=== PATIENT | male | born 1985 | race Caucasian/White ===

== ENCOUNTER 2017-06-27 05:30 | Emergency (ER) | payer BC ==
[2017-06-27 05:36] VITALS: BP 131/77; PULSE 85; RESP 18; TEMP 97.2
--- NOTE | 2017-06-27 06:50 | ED ---
Wound/Laceration HPI - General Chief Complaint: Wound/Laceration Stated Complaint: left hand lac Time Seen by Provider: 06/27/17 06:34 Source: patient Mode of arrival: ambulatory Limitations: no limitations - History of Present Illness Initial Comments: This patient is a 32-year-old man who presents to be evaluated for laceration to the left hand. Patient states that he was working with a knife and had an injury to his hand. He denies any weakness or numbness to the digits area -: hour(s) Extremity Location: Left: Hand Place: work Patient Tetanus UTD: Yes Context: accidental Associated Symptoms: none - Related Data Home Medications Medication Instructions Recorded Confirmed Dextroamphetamine/Amphetamine 1 tab PO DAILY 06/27/17 06/27/17 [Adderall Xr] Allergies Allergy/AdvReac Type Severity Reaction Status Date / Time No Known Allergies Allergy Verified 06/27/17 05:36 Review of Systems ROS Statement: Those systems with pertinent positive or pertinent negative responses have been documented in the HPI. ROS Other: All systems not noted in ROS Statement are negative. Constitutional: Denies: fever, chills, weakness Neurological: Denies: weakness, numbness, paresthesias Hematological/Lymphatic: Denies: easy bleeding Past Medical History Past Medical History: No Reported History History of Any Multi-Drug Resistant Organisms: None Reported Past Surgical History: Orthopedic Surgery Past Psychological History: No Psychological Hx Reported Smoking Status: Never smoker Past Alcohol Use History: Occasional Past Drug Use History: None Reported General Exam Limitations: no limitations General appearance: alert, in no apparent distress Cardiovascular Exam: Present: other (Normal radial pulse and normal capillary refills a left and) Skin exam: Present: warm, dry, normal color, other (There is a approximately 1.5 cm laceration to left palm.) Course Vital Signs 06/27/17 05:34 Temperature 97.2 F L Pulse Rate 85 Respiratory 18 Rate Blood Pressure 131/77 O2 Sat by Pulse 96 Oximetry Procedures - Laceration Laceration #1 Consent Obtained: verbal consent Indication: laceration Site: hand Description: linear Depth: simple, single layer Anesthetic Used: lidocaine 1% Anesthesia Technique: local infiltration Type of Sutures: nylon Size of Sutures: 5-0 Number of Sutures: 2 Technique: simple, interrupted Patient Tolerated Procedure: well, no complications Disposition Clinical Impression: Laceration Disposition: HOME SELF-CARE Condition: Good Instructions: Care For Your Stitches (ED), Laceration (ED) Referrals: Sadia Hodges MD [Primary Care Provider] - 1-2 days
== END 2017-06-27 06:59 | disposition home or self-care (01) ==
LOC: EC 05:30
DX: S61.412A Laceration without foreign body of left hand, initial encounter (principal); W26.0XXA Contact with knife, initial encounter; Y92.008 Other place in unspecified non-institutional (private) residence as the place of occurrence of the external cause; Z79.899 Other long term (current) drug therapy
CPT/HCPCS: 12001; 99282

== ENCOUNTER 2019-03-16 02:43 | Inpatient (IN) | payer BC ==
[2019-03-16] MEDS ORDERED: SODIUM CHLORIDE 0.9% 1,000 ML IV ONE (03:04)
[2019-03-16] MEDS ORDERED: ONDANSETRON 4 MG/2 ML VIAL IVP STA (03:04)
[2019-03-16] MEDS ORDERED: KETOROLAC 30 MG/ML 1 ML VIAL IVP STA (03:04)
--- NOTE | 2019-03-16 03:07 | ED ---
Abdominal Pain HPI - General Source: patient Mode of arrival: ambulatory Limitations: no limitations <Grace Guerrero - Last Filed: 03/16/19 04:10> <Mandy Cooper - Last Filed: 03/18/19 03:26> - General Chief Complaint: Abdominal Pain Stated Complaint: Flank Pain Time Seen by Provider: 03/16/19 02:59 - History of Present Illness Initial Comments: 33-year-old male patient presents to the emergency department today for evaluation of right flank pain. Patient describes the pain as a intense cramping and pain to the right back that radiates around to the abdomen. Patient states started around 11 PM that woke him from sleep. Patient states he has been nauseated and did have one episode of vomiting. States he has not urinated since pain onset. Denies any diarrhea throughout the day. Denies any fever or chills with this. He denies any similar pain in the past. Denies any previous abdominal surgeries. Patient denies any recent rash, shortness breath, chest pain, constipation, back pain, numbness, tingling, dizziness, weakness, hematuria, dysuria, urinary urgency, urinary frequency, headache, visual changes, or any other complaints. (Grace Guerrero) - Related Data Home Medications Medication Instructions Recorded Confirmed Dextroamphetamine/Amphetamine 40 mg PO DAILY 03/16/19 03/16/19 [Adderall Xr] Multivitamins, Thera [Multivitamin 1 tab PO DAILY 03/16/19 03/16/19 (formulary)] Allergies Allergy/AdvReac Type Severity Reaction Status Date / Time No Known Allergies Allergy Verified 03/16/19 08:02 Review of Systems ROS Other: All systems not noted in ROS Statement are negative. <Grace Guerrero - Last Filed: 03/16/19 04:10> ROS Other: All systems not noted in ROS Statement are negative. <Mandy Cooper - Last Filed: 03/18/19 03:26> ROS Statement: Those systems with pertinent positive or pertinent negative responses have been documented in the HPI. Past Medical History Past Medical History: No Reported History History of Any Multi-Drug Resistant Organisms: None Reported Past Surgical History: Orthopedic Surgery Additional Past Surgical History / Comment(s): vastectomy Past Psychological History: No Psychological Hx Reported Smoking Status: Never smoker Past Alcohol Use History: Occasional Past Drug Use History: None Reported <Grace Guerrero M - Last Filed: 03/16/19 04:10> General Exam Limitations: no limitations General appearance: alert, in no apparent distress, other (Physical well- developed, well-nourished adult male patient in no acute distress. Vital signs upon presentation are temperature 97.6F, pulse 100, respirations 18, blood pressure 131/83, pulse ox 98% on room air.) Eye exam: Present: normal appearance, PERRL, EOMI. Absent: scleral icterus, conjunctival injection, periorbital swelling ENT exam: Present: normal exam, normal oropharynx, mucous membranes moist Respiratory exam: Present: normal lung sounds bilaterally. Absent: respiratory distress, wheezes, rales, rhonchi, stridor Cardiovascular Exam: Present: regular rate, normal rhythm, normal heart sounds. Absent: systolic murmur, diastolic murmur, rubs, gallop, clicks GI/Abdominal exam: Present: soft, tenderness (Right lower quadrant tenderness, right flank tenderness), normal bowel sounds. Absent: distended, guarding, rebound, rigid Neurological exam: Present: alert, oriented X3, CN II-XII intact Psychiatric exam: Present: normal affect, normal mood Skin exam: Present: warm, dry, intact, normal color. Absent: rash <Grace Guerrero M - Last Filed: 03/16/19 04:10> Course Vital Signs 03/16/19 03/16/19 02:51 04:24 Temperature 97.6 F Pulse Rate 100 82 Respiratory 18 18 Rate Blood Pressure 131/83 145/78 O2 Sat by Pulse 98 98 Oximetry Medical Decision Making - Lab Data Result diagrams: 03/16/19 03:05 03/16/19 03:05 - Radiology Data Radiology results: report reviewed, image reviewed <Grace Guerrero M - Last Filed: 03/16/19 04:10> - Lab Data Result diagrams: 03/16/19 03:05 03/16/19 03:05 <Mandy Cooper - Last Filed: 03/18/19 03:26> - Medical Decision Making 33-year-old male patient presented to the emergency department today for evaluation of right sided flank and abdominal pain. Physical examination did reveal right lower quadrant tenderness, right upper quadrant tenderness, and r ight flank tenderness. Labs reviewed and revealed normal white blood cell count. Patient's creatinine elevated to 1.3. IV fluids and Toradol are given in the emergency department, patient does report mild improvement of symptoms but states he is still having pain. Patient is afebrile. Did discuss findings and results with the patient, he has agreed to be admitted for observation for serial abdominal exams and repeat labs. We'll start Flomax. Urine is pending. Patient will be admitted to Dr. Rome. (Grace Guerrero) I was available for consultation in the emergency department. The history and physical exam were done by the midlevel provider. I was consulted for this patient's care. I reviewed the case with the midlevel provider and based on their presentation of the patient, I agree with the assessment, discussed patient care with surgeon director of convention services Dr. Rome who agrees with plan for observation with a consult to urology. Chart was dictated using [employer] dictation software. Attempts were made to correct any dictation errors however some typographical errors may persist. (Mandy Cooper) - Lab Data Lab Results 03/16/19 03/16/19 Range/Units 03:05 03:05 WBC 8.0 (3.8-10.6) k/uL RBC 6.05 H (4.30-5.90) m/uL Hgb 17.9 H (13.0-17.5) gm/dL Hct 54.8 H (39.0-53.0) % MCV 90.5 (80.0-100.0) fL MCH 29.6 (25.0-35.0) pg MCHC 32.7 (31.0-37.0) g/dL RDW 15.6 H (11.5-15.5) % Plt Count 220 (150-450) k/uL Neutrophils % 63 % Lymphocytes % 28 % Monocytes % 5 % Eosinophils % 2 % Basophils % 0 % Neutrophils # 5.1 (1.3-7.7) k/uL Lymphocytes # 2.2 (1.0-4.8) k/uL Monocytes # 0.4 (0-1.0) k/uL Eosinophils # 0.2 (0-0.7) k/uL Basophils # 0.0 (0-0.2) k/uL Sodium 139 (137-145) mmol/L Potassium 4.6 (3.5-5.1) mmol/L Chloride 104 (98-107) mmol/L Carbon Dioxide 25 (22-30) mmol/L Anion Gap 10 mmol/L BUN 9 (9-20) mg/dL Creatinine 1.43 H (0.66-1.25) mg/dL Est GFR (CKD-EPI)AfAm 75 (>60 ml/min/1.73 sqM) Est GFR (CKD-EPI)NonAf 65 (>60 ml/min/1.73 sqM) Glucose 120 H (74-99) mg/dL Calcium 9.2 (8.4-10.2) mg/dL Total Bilirubin 1.1 (0.2-1.3) mg/dL AST 28 (17-59) U/L ALT 66 (21-72) U/L Alkaline Phosphatase 58 (38-126) U/L Total Protein 6.8 (6.3-8.2) g/dL Albumin 4.0 (3.5-5.0) g/dL Amylase 74 (30-110) U/L Lipase 140 (23-300) U/L - Radiology Data CT abdomen and pelvis without contrast was obtained. Report was reviewed in its entirety. Impression by Dr. Rodgers shows 5 mm obstructing right vesicoureteral junction stone causing mild hydroureter and hydronephrosis. Each kidney has several nonobstructing renal stones. Appendix is dilated to 8 mm, contains inspissated stool, without surrounding mesenteric inflammatory change, likely pa kristin's patient in early appendicitis cannot excluded. (Grace Guerrero) Disposition Decision to Admit Reason: Admit from EC Decision Date: 03/16/19 Decision Time: 04:10 <Grace Guerrero - Last Filed: 03/16/19 04:10> <Mandy Cooper - Last Filed: 03/18/19 03:26> Clinical Impression: RLQ abdominal pain, Right ureteral stone Disposition: ADMITTED IP TO THIS [facility] Condition: Good
[2019-03-16 03:23] LABS: Basophils % (A) 0 %; Eosinophils # (A) 0.2 k/uL (0-0.7); Eosinophils % (A) 2 %; HCT 54.8 % (39.0-53.0); HGB 17.9 gm/dL (13.0-17.5); Lymphocytes # (A) 2.2 k/uL (1.0-4.8); Lymphocytes % (A) 28 %; MCH 29.6 pg (25.0-35.0); MCHC 32.7 g/dL (31.0-37.0); MCV 90.5 fL (80.0-100.0); Mean Platelet Volume 7.9; Monocytes # (A) 0.4 k/uL (0-1.0); Monocytes % (A) 5 %; Neutrophils # (A) 5.1 k/uL (1.3-7.7); Neutrophils % (A) 63 %; Platelet Count 220 k/uL (150-450); RBC 6.05 m/uL (4.30-5.90); RDW 15.6 % (11.5-15.5)
[2019-03-16 03:29] LABS: Calcium 9.2 mg/dL (8.4-10.2); Potassium 4.6 mmol/L (3.5-5.1); Total Bilirubin 1.1 mg/dL (0.2-1.3); Total Protein 6.8 g/dL (6.3-8.2)
--- NOTE | 2019-03-16 03:53 | CT ---
EXAM: CT Abdomen and Pelvis Without Intravenous Contrast CLINICAL HISTORY: right upper quadrant pain TECHNIQUE: Axial computed tomography images of the abdomen and pelvis without intravenous contrast. DLP is 565.9 mGy-cm. This CT exam was performed using one or more of the following dose reduction techniques: automated exposure control, adjustment of the mA and/or kV according to patient size, and/or use of iterative reconstruction technique. Coronal and sagittal reconstructions are performed COMPARISON: No relevant prior studies available. FINDINGS: Lung bases: Unremarkable. No mass. No consolidation. ABDOMEN: Liver: Unremarkable. Gallbladder and bile ducts: Unremarkable. No calcified stones. No ductal dilation. Pancreas: Unremarkable. No ductal dilation. Spleen: Unremarkable. No splenomegaly. Adrenals: Unremarkable. No mass. Kidneys and ureters: Each kidney has several nonobstructing renal stones measuring up to 4 mm. 5 mm obstructing right vesicoureteral junction stone on series 201 image 145, causes mild hydroureter and hydronephrosis. Stomach and bowel: Unremarkable. No obstruction. No mucosal thickening. PELVIS: Appendix: Appendix is dilated to 8 mm, contains inspissated stool, without surrounding mesenteric inflammatory change, likely patient's baseline.. Bladder: Unremarkable. No stones. Reproductive: Unremarkable as visualized. ABDOMEN and PELVIS: Intraperitoneal space: Unremarkable. No free air. No significant fluid collection. Bones/joints: 5 mm anterolisthesis of L5 on S1 with associated bilateral old pars defect of L5. No acute fracture. No dislocation. Soft tissues: Unremarkable. Vasculature: Unremarkable. No abdominal aortic aneurysm. Lymph nodes: Unremarkable. No enlarged lymph nodes. IMPRESSION: 5 mm obstructing right vesicoureteral junction stone causes mild hydroureter and hydronephrosis. Each kidney has several nonobstructing renal stones Appendix is dilated to 8 mm, contains inspissated stool, without surrounding mesenteric inflammatory change, likely patient's baseline. Early appendicitis cannot be excluded. Please correlate with clinical and laboratory findings.
[2019-03-16] MEDS ORDERED: ONDANSETRON 4 MG/2 ML VIAL IVP PRN (04:08)
[2019-03-16] MEDS ORDERED: NALOXONE 0.4 MG/ML 1 ML VIAL IV PRN (04:08)
[2019-03-16] MEDS ORDERED: TAMSULOSIN 0.4 MG CAP.ER.24H PO STA (04:10)
[2019-03-16] MEDS: MORPHINE SULFATE 4 MG/ML SYRINGE IV PRN ×2 (04:20→08:03)
[2019-03-16] MEDS: SODIUM CHLORIDE 0.9% 1,000 ML IV SCH ×3 (04:23→22:13)
[2019-03-16 05:34] VITALS: BMI 33.5
[2019-03-16] MEDS: TAMSULOSIN 0.4 MG CAP.ER.24H PO SCH (08:03)
--- NOTE | 2019-03-16 10:30 | P.GSCN ---
History of Present Illness Consult date: 03/16/19 Reason for Consult: Right renal colic Requesting physician: Martha Rome History of present illness: The patient is a 33-year-old white male who had one prior episode of urolithiasis approximately 6 years ago. At that time, he passed a 3 mm ureteral calculus. He now presents with acute onset of right flank pain radiating to the right lower quadrant. A computed tomography scan has shown evidence of mild right hydronephrosis due to a 5 mm right distal ureteral calculus, just cephalad to the ureterovesical junction. Review of Systems - Constitutional Denies chills, Denies fever - Gastrointestinal Reports nausea, Reports vomiting - Genitourinary Reports flank pain, Reports kidney stones, Denies dysuria, Denies hematuria Past Medical History Past Medical History: No Reported History History of Any Multi-Drug Resistant Organisms: None Reported Past Surgical History: Orthopedic Surgery Additional Past Surgical History / Comment(s): Vasectomy Past Psychological History: No Psychological Hx Reported Smoking Status: Never smoker Past Alcohol Use History: Occasional Past Drug Use History: None Reported Medications and Allergies Home Medications Medication Instructions Recorded Confirmed Type Dextroamphetamine/Amphetamine 40 mg PO DAILY 03/16/19 03/16/19 History [Adderall Xr] Multivitamins, Thera [Multivitamin 1 tab PO DAILY 03/16/19 03/16/19 History (formulary)] Allergies Allergy/AdvReac Type Severity Reaction Status Date / Time No Known Allergies Allergy Verified 03/16/19 08:02 Surgical - Exam Vital Signs Temp Pulse Resp BP Pulse Ox 97.6 F 100 18 131/83 98 03/16/19 02:51 03/16/19 02:51 03/16/19 02:51 03/16/19 02:51 03/16/19 02:51 - General well developed, well nourished, moderate distress - Neck no masses, trachea midline - Respiratory normal respiratory effort - Abdomen Abdomen: soft, non tender, no guarding, no rigid, no rebound Hernia: none - Genitourinary normal penis with no external lesions, testicles non-tender - Psychiatric oriented to time, oriented to person, oriented to place, speech is normal, memor y intact Results - Labs 03/16/19 03:05 03/16/19 03:05 Abnormal Lab Results - Last 24 Hours (Table) 03/16/19 03/16/19 Range/Units 03:05 03:05 RBC 6.05 H (4.30-5.90) m/uL Hgb 17.9 H (13.0-17.5) gm/dL Hct 54.8 H (39.0-53.0) % RDW 15.6 H (11.5-15.5) % Creatinine 1.43 H (0.66-1.25) mg/dL Glucose 120 H (74-99) mg/dL Diabetes panel 03/16/19 Range/Units 03:05 Sodium 139 (137-145) mmol/L Potassium 4.6 (3.5-5.1) mmol/L Chloride 104 (98-107) mmol/L Carbon Dioxide 25 (22-30) mmol/L BUN 9 (9-20) mg/dL Creatinine 1.43 H (0.66-1.25) mg/dL Glucose 120 H (74-99) mg/dL Calcium 9.2 (8.4-10.2) mg/dL AST 28 (17-59) U/L ALT 66 (21-72) U/L Alkaline Phosphatase 58 (38-126) U/L Total Protein 6.8 (6.3-8.2) g/dL Albumin 4.0 (3.5-5.0) g/dL Calcium panel 03/16/19 Range/Units 03:05 Calcium 9.2 (8.4-10.2) mg/dL Albumin 4.0 (3.5-5.0) g/dL Pituitary panel 03/16/19 Range/Units 03:05 Sodium 139 (137-145) mmol/L Potassium 4.6 (3.5-5.1) mmol/L Chloride 104 (98-107) mmol/L Carbon Dioxide 25 (22-30) mmol/L BUN 9 (9-20) mg/dL Creatinine 1.43 H (0.66-1.25) mg/dL Glucose 120 H (74-99) mg/dL Calcium 9.2 (8.4-10.2) mg/dL Adrenal panel 03/16/19 Range/Units 03:05 Sodium 139 (137-145) mmol/L Potassium 4.6 (3.5-5.1) mmol/L Chloride 104 (98-107) mmol/L Carbon Dioxide 25 (22-30) mmol/L BUN 9 (9-20) mg/dL Creatinine 1.43 H (0.66-1.25) mg/dL Glucose 120 H (74-99) mg/dL Calcium 9.2 (8.4-10.2) mg/dL Total Bilirubin 1.1 (0.2-1.3) mg/dL AST 28 (17-59) U/L ALT 66 (21-72) U/L Alkaline Phosphatase 58 (38-126) U/L Total Protein 6.8 (6.3-8.2) g/dL Albumin 4.0 (3.5-5.0) g/dL - Imaging CT scan - abdomen: report reviewed, image reviewed Assessment and Plan (1) Right ureteral stone Current Visit: Yes Status: Acute Code(s): N20.1 - CALCULUS OF URETER SNOMED Code(s): 36115019 (2) Hydronephrosis with urinary obstruction due to ureteral calculus Current Visit: Yes Status: Acute Code(s): N13.2 - HYDRONEPHROSIS WITH RENAL AND URETERAL CALCULOUS OBSTRUCTION SNOMED Code(s): 759160426 Plan: I had a lengthy discussion with Mr. Sanchez regarding his ureteral calculus. He is currently experiencing significant pain. I explained that the calculus has a high likelihood of spontaneous passage. If he opts for conservative management, he would be discharged home once comfortable with a prescription for oral analgesics. If he develops intractable pain or hyperemesis, readmission would be required. He is scheduled to fly to [place] on 03/22/2019. We discussed surgical removal of the calculus. After weighing the pros and cons of surgery versus conservative management, he has elected to undergo ureteroscopic removal of the calculus. The procedure was reviewed in detail, including potential risks which include anesthesia, ureteral injury, infection, and inability to successfully remove the calculus. The possible need for a ureteral stent was also discussed. The procedure will be performed later today. Incidentally, the computed tomography scan did show an abnormality associated with the appendix, divide it is my belief that the patient's symptoms are due to the ureteral calculus rather than appendicitis. Time with Patient: Greater than 30
--- NOTE | 2019-03-16 11:56 | P.GSHP ---
History of Present Illness H&P Date: 03/16/19 Chief Complaint: Abdominal pain The patient presented with right flank abdominal pain yesterday evening. He went to bed and was awakened early in the morning with severe pain. That caused him to have nausea and vomiting. No fevers or chills. He tried to walk around but the pain persisted so he came into the emergency department. He does have a history of nephrolithiasis in the past. At that time there was a kidney stone that spontaneously passed. He said at that time he could feel the stone moving. This time the pain as stated the same location. Denies recent Prior illness. - Review of Systems All systems: negative Past Medical History Past Medical History: No Reported History History of Any Multi-Drug Resistant Organisms: None Reported Past Surgical History: Orthopedic Surgery Additional Past Surgical History / Comment(s): Vasectomy Past Psychological History: No Psychological Hx Reported Smoking Status: Never smoker Past Alcohol Use History: Occasional Past Drug Use History: None Reported Medications and Allergies Home Medications Medication Instructions Recorded Confirmed Type Dextroamphetamine/Amphetamine 40 mg PO DAILY 03/16/19 03/16/19 History [Adderall Xr] Multivitamins, Thera [Multivitamin 1 tab PO DAILY 03/16/19 03/16/19 History (formulary)] Allergies Allergy/AdvReac Type Severity Reaction Status Date / Time No Known Allergies Allergy Verified 03/16/19 08:02 Surgical - Exam Osteopathic Statement: *. No significant issues noted on an osteopathic structural exam other than those noted in the History and Physical/Consult. Vital Signs Temp Pulse Resp BP Pulse Ox 97.6 F 100 18 131/83 98 03/16/19 02:51 03/16/19 02:51 03/16/19 02:51 03/16/19 02:51 03/16/19 02:51 - General well developed, well nourished, no distress - Eyes normal ocular movement - ENT normal mucosa - Neck trachea midline, no lymphadectomy - Respiratory normal respiratory effort, clear to auscultation - Cardiovascular Rhythm: regular - Abdomen Abdomen: soft, tender (No significant tenderness, guarding, rebound), bowel sounds Results - Labs 03/16/19 03:05 03/16/19 03:05 Abnormal Lab Results - Last 24 Hours (Table) 03/16/19 03/16/19 Range/Units 03:05 03:05 RBC 6.05 H (4.30-5.90) m/uL Hgb 17.9 H (13.0-17.5) gm/dL Hct 54.8 H (39.0-53.0) % RDW 15.6 H (11.5-15.5) % Creatinine 1.43 H (0.66-1.25) mg/dL Glucose 120 H (74-99) mg/dL Diabetes panel 03/16/19 Range/Units 03:05 Sodium 139 (137-145) mmol/L Potassium 4.6 (3.5-5.1) mmol/L Chloride 104 (98-107) mmol/L Carbon Dioxide 25 (22-30) mmol/L BUN 9 (9-20) mg/dL Creatinine 1.43 H (0.66-1.25) mg/dL Glucose 120 H (74-99) mg/dL Calcium 9.2 (8.4-10.2) mg/dL AST 28 (17-59) U/L ALT 66 (21-72) U/L Alkaline Phosphatase 58 (38-126) U/L Total Protein 6.8 (6.3-8.2) g/dL Albumin 4.0 (3.5-5.0) g/dL Calcium panel 03/16/19 Range/Units 03:05 Calcium 9.2 (8.4-10.2) mg/dL Albumin 4.0 (3.5-5.0) g/dL Pituitary panel 03/16/19 Range/Units 03:05 Sodium 139 (137-145) mmol/L Potassium 4.6 (3.5-5.1) mmol/L Chloride 104 (98-107) mmol/L Carbon Dioxide 25 (22-30) mmol/L BUN 9 (9-20) mg/dL Creatinine 1.43 H (0.66-1.25) mg/dL Glucose 120 H (74-99) mg/dL Calcium 9.2 (8.4-10.2) mg/dL Adrenal panel 03/16/19 Range/Units 03:05 Sodium 139 (137-145) mmol/L Potassium 4.6 (3.5-5.1) mmol/L Chloride 104 (98-107) mmol/L Carbon Dioxide 25 (22-30) mmol/L BUN 9 (9-20) mg/dL Creatinine 1.43 H (0.66-1.25) mg/dL Glucose 120 H (74-99) mg/dL Calcium 9.2 (8.4-10.2) mg/dL Total Bilirubin 1.1 (0.2-1.3) mg/dL AST 28 (17-59) U/L ALT 66 (21-72) U/L Alkaline Phosphatase 58 (38-126) U/L Total Protein 6.8 (6.3-8.2) g/dL Albumin 4.0 (3.5-5.0) g/dL - Imaging CT scan - abdomen: report reviewed, image reviewed Assessment and Plan (1) Hydronephrosis with urinary obstruction due to ureteral calculus Current Visit: Yes Status: Acute Code(s): N13.2 - HYDRONEPHROSIS WITH RENAL AND URETERAL CALCULOUS OBSTRUCTION SNOMED Code(s): 429981429 (2) RLQ abdominal pain Current Visit: Yes Status: Acute Code(s): R10.31 - RIGHT LOWER QUADRANT PAIN SNOMED Code(s): 080183062 Plan: On computed tomography scan his appendix was prominent at 8 mm. This is felt to be a normal variant. No signs of acute appendicitis. His symptoms are well explained by the nephrolithiasis with hydronephrosis. The case was discussed With Dr. Coleman. He will take the patient for stone extraction. Surgically stable for discharge when he is cleared by Dr. Coleman. Follow-up with nephrology after discharge
[2019-03-16 11:58] LABS: Appearance,Urine Cloudy (Clear); Bilirubin,Urine Negative (Negative); Blood,Urine Moderate (Negative); Calcium Oxalate Crystals,Urine Occasional /hpf; Color,Urine Yellow; Glucose,Urine (UA) Negative (Negative); Ketones,Urine Negative (Negative); Leukocyte Esterase,Urine Negative (Negative); Mucus,Urine Many /hpf; Nitrite,Urine Negative (Negative); PH, Urine 6.5 (5.0-8.0); Protein,Urine 1+ (Negative); RBC,Urine 174 /hpf (0-5); Specific Gravity,Urine 1.028 (1.001-1.035); Squamous Epithelial Cell,Urine 2 /hpf (0-4); WBC,Urine 4 /hpf (0-5)
[2019-03-16] MEDS ORDERED: ceFAZolin 2 GM in SODIUM CHLORIDE 0.9% 100 ML IVPB ONE (12:00)
[2019-03-16] MEDS ORDERED: ceFAZolin IN SWFI 2 GM/20 ML SYRINGE IVP ONE (12:00)
[2019-03-16] MEDS ORDERED: fentaNYL (PF) 50 MCG/ML 2 ML AMP ONE (12:08)
[2019-03-16] MEDS ORDERED: KETOROLAC 30 MG/ML 1 ML VIAL ONE (12:08)
[2019-03-16] MEDS ORDERED: MIDAZOLAM 2 MG/2 ML VIAL ONE (12:08)
[2019-03-16] MEDS ORDERED: LIDOCAINE 1% INJ 10MG/ML (20 ML MDV) ONE (12:08)
[2019-03-16] MEDS ORDERED: IV FLUID CONTINUATION 500 ML IV ONE (12:08)
[2019-03-16] MEDS ORDERED: PROPOFOL 10 MG/ML 20 ML VIAL IV ONE (12:08)
[2019-03-16] MEDS ORDERED: SUCCINYLCHOLINE CHLORIDE 100 MG/5 ML SYR IV ONE (12:08)
[2019-03-16] MEDS ORDERED: DEXAMETHASONE SOD PHOS (MDV) 100 MG/10 ML VIAL ONE (12:08)
[2019-03-16] MEDS ORDERED: SODIUM CHLORIDE 0.9% 100 ML with ceFAZolin 2,000 MG IV ONE ×4 (12:20)
[2019-03-16] MEDS ORDERED: IOPAMIDOL-370 50ML BTL IRRIGATION ONE (12:44)
[2019-03-16] MEDS ORDERED: LACTATED RINGERS 1,000 ML IV ONE ×2 (12:54)
--- NOTE | 2019-03-16 13:45 | P.OP ---
Date of Procedure: 03/16/19 Preoperative Diagnosis: Right ureteral calculus, right renal calculi Postoperative Diagnosis: Same Procedure(s) Performed: Cystoscopy, right ureteral balloon dilation, right ureteroscopy with Holmium laser lithotripsy and stone basketing, right ureteral stent insertion Anesthesia: TOBYA Surgeon: Manuel Coleman Estimated Blood Loss (ml): 10 IV fluids (ml): 1,000 Pathology: other (Renal calculi, some for chemical analysis) Condition: stable Disposition: PACU Indications for Procedure: The patient is a 33-year-old white male who had one prior episode of urolithiasis approximately 6 years ago. At that time, he passed a 3 mm ureteral calculus. He now presents with acute onset of right flank pain radiating to the right lower quadrant. A computed tomography scan has shown evidence of mild right hydronephrosis due to a 5 mm right distal ureteral calculus, just cephalad to the ureterovesical junction, as well as small renal calculi. Operative Findings: Right distal ureteral narrowing. Right distal ureteral calculus, fragmented completely. Multiple tiny right renal calculi, removed via stone basketing. Description of Procedure: The patient was taken to the operating room and placed in the dorsolithotomy position, with legs supported in Aric stirrups. The external genitalia was prepped and draped sterilely. The 30 lens was used to introduce the 19-Finnish Stortz cystoscopic sheath through the urethra and into the bladder under direct vision. The prostatic urethra showed evidence of mild lateral lobe enlargement and a high median bar. The bladder was examined in its entirety. Both ureteral orifices were normal anatomic location and configuration. The entire bladder was examined. No tumors or foreign bodies were seen. The [facility] semirigid ureteroscope was advanced into the bladder, but the right ureteral orifice could not be cannulated. The cystoscope was replaced into the bladder, and a 12- Finnish cone-tipped catheter was passed through the ureteral orifice to dilate the orifice. The ureteroscope was then replaced into the bladder, and ureteroscopy was performed. The calculus was identified, though the ureter distal to this was narrowed and would not allow the ureteroscope to be advanced up to the calculus. Therefore, a 0.035 inch Glidewire was passed through the ureteroscope and up to the right renal pelvis. A 15-Finnish, 4 cm balloon dilating catheter was used to dilate the area of ureteral narrowing. It was then possible to perform ureteroscopy, and the 200 micron Holmium laser probe was passed through the ureteroscope. Lithotripsy was performed using a dusting technique, allowing the calculus to be removed in its entirety. No additional calculi were seen within the distal ureter. There was no evidence of ureteral perforation. The Glidewire was passed through the ureteroscope and up to the right renal pelvis. The Olympus flexible ureteroscope was passed over the Glidewire, but would not pass through the ureteral orifice. The orifice was di lated using the balloon dilating catheter, but again the ureteroscope could not be passed over the wire. Therefore, and an 11/13-Finnish ureteral access catheter was passed over the wire, up to the mid ureter. The flexible ureteroscope was then passed through the ureteral access catheter sheath, and was advanced under direct vision up to the right renal pelvis. Each calyx was examined. Multiple tiny calculi were seen, some adherent to the mucosa. The 1.9-Finnish nitinol basket was used to remove approximately 6 calculi. No residual calculi were seen, and therefore the ureteroscope was removed. The Glidewire was passed through the ureteral access catheter sheath, which was then removed. The Glidewire was backloaded into the cystoscope, which was passed into the bladder. A 24 cm, 4.8-Finnish double-J ureteral stent was placed over the wire. Proper stent positioning was verified fluoroscopically and endoscopically. The bladder was emptied and the cystoscope removed. The patient tolerated the procedure well and was taken to the recovery room in stable condition.
[2019-03-16] MEDS ORDERED: KETOROLAC 30 MG/ML 1 ML VIAL IVP PRN (14:02)
--- NOTE | 2019-03-16 15:19 | FL ---
EXAMINATION TYPE: FL urography retrograde DATE OF EXAM: 03/16/2019 FLUOROSCOPY Fluoroscopy time of 73 seconds was used during right-sided stent placement. 1 image/s document/s the procedure.
[2019-03-17 02:56] VITALS: PULSE 101
[2019-03-17 07:54] VITALS: BP 129/64; RESP 15; TEMP 98.3
[2019-03-17] MEDS: TAMSULOSIN 0.4 MG CAP.ER.24H PO SCH (08:02)
--- NOTE | 2019-03-17 10:00 | P.DS ---
Providers Date of admission: 03/16/19 04:08 Expected date of discharge: 03/17/19 Attending physician: Manuel Coleman Consults: 03/16/19 04:08 Consult Physician Routine Consulting Provider: Redd Escalera Consult Reason/Comments: right sided stone, 5mm with hydro Do you want consulting provider notified?: Yes, Notify in am Primary care physician: Tracie Mccullough - Discharge Diagnosis(es) (1) Right ureteral stone Current Visit: Yes Status: Acute (2) Hydronephrosis with urinary obstruction due to ureteral calculus Current Visit: Yes Status: Acute Hospital Course: Upon admission, the patient was treated with parenteral analgesics. He elected to undergo ureteroscopic removal of his obstructing ureteral calculus. The ureter was noted to be diminished in caliber, requiring ureteral dilation. The right distal ureteral calculus was fragmented, and approximately 6 small calculi were removed from the right kidney via stone basketing. On the first postoperative day, the patient reported hematuria and mild dysuria, but was ov erall feeling well. He denied fever, chills, and nausea. He stated that other than the dysuria, which is improving, his discomfort is minimal. Pertinent Studies: Scan shows right hydroureteronephrosis due to a 5 mm right distal ureteral calculus. Procedures: Cystoscopy, right ureteroscopy with Holmium laser lithotripsy and stone basketing, right ureteral stent insertion on 03/16/2019. Patient Condition at Discharge: Good Plan - Discharge Summary Discharge Rx Participant: Yes New Discharge Prescriptions: No Action Dextroamphetamine/Amphetamine [Adderall Xr] 40 mg PO DAILY Multivitamins, Thera [Multivitamin (formulary)] 1 tab PO DAILY Discharge Medication List Dextroamphetamine/Amphetamine [Adderall Xr] 40 mg PO DAILY 03/16/19 [History] Multivitamins, Thera [Multivitamin (formulary)] 1 tab PO DAILY 03/16/19 [Hi story] Follow up Appointment(s)/Referral(s): Sadia Hodges MD [Primary Care Provider] - 1-2 days Martha Rome DO [Doctor of Osteopathic Medicine] - As Needed (NO FOLLOW UP NECESSARY.) Manuel Coleman MD [STAFF PHYSICIAN] - 03/21/19 Patient Instructions/Handouts: Ureteral Stones (DC) Activity/Diet/Wound Care/Special Instructions: Drink plenty of fluids. Diet as tolerated. Activity as tolerated. Reassure patient that hematuria and urinary frequency or normal. Patient should call Dr. Coleman' office on 03/18/2019 to schedule an appointment for office cystoscopy with stent removal on 03/21/2019. Discharge Disposition: HOME SELF-CARE
[2019-03-17] MEDS: SODIUM CHLORIDE 0.9% 1,000 ML IV SCH (12:23)
== END 2019-03-17 12:38 | disposition home or self-care (01) | DRG 661 ==
LOC: EC 02:43 → 4SSUR 04:08
PROVIDERS: ADMIT Urology; ATTEND Urology
PROC: 0T768DZ Dilation of Right Ureter with Intraluminal Device, Via Natural or Artificial Opening Endoscopic (ICD-10-PCS; principal; 2019-03-16 12:00)
PROC: 0TC68ZZ Extirpation of Matter from Right Ureter, Via Natural or Artificial Opening Endoscopic (ICD-10-PCS; principal; 2019-03-16 12:00)
DX: N13.2 Hydronephrosis with renal and ureteral calculous obstruction (principal); Z79.899 Other long term (current) drug therapy; F90.9 Attention-deficit hyperactivity disorder, unspecified type
CPT/HCPCS: 36415; 74176; 74420; 80053; 81001; 82150; 82365; 83690; 85025; 96361; 96374; 96375; 99285

== ENCOUNTER 2019-04-21 09:48 | Emergency (ER) | payer BC ==
[2019-04-21 10:07] VITALS: RESP 18; TEMP 98
[2019-04-21] MEDS ORDERED: DIPH,PERTUS(ACELL)TETVAC-LF 0.5 ML VIAL IM ONE (10:13)
[2019-04-21] MEDS ORDERED: LIDOCAINE 1% INJ 10MG/ML (20 ML MDV) SQ ONE (10:13)
--- NOTE | 2019-04-21 10:16 | ED ---
Wound/Laceration HPI - General Chief Complaint: Wound/Laceration Stated Complaint: crushed thumb Time Seen by Provider: 04/21/19 10:08 Source: patient, RN notes reviewed, old records reviewed Mode of arrival: ambulatory - History of Present Illness Initial Comments: Patient is a 34-year-old male presents emergency murmur today with complaints of right thumb pain after his thumb was stuck between a trailer hitch. Patient reports that his thumb was crushed. He complains of the nail was taken off. Patient states that he has normal sensation to the distal tip of the finger. Patient reports that he has had no previous hand injuries. Has not seen an [facility]. TM is not up-to-date. Patient states that he has had no other symptoms. He does report full range of motion of the DIP of the thumb. - Related Data Home Medications Medication Instructions Recorded Confirmed Dextroamphetamine/Amphetamine 40 mg PO DAILY 03/16/19 03/16/19 [Adderall Xr] Multivitamins, Thera [Multivitamin 1 tab PO DAILY 03/16/19 03/16/19 (formulary)] Previous Rx's Medication Instructions Recorded Cephalexin [Keflex] 500 mg PO Q6HR #40 cap 04/21/19 HYDROcodone/APAP 5-325MG [[place] 1 tab PO Q6HR PRN #10 tab 04/21/19 5-325] Allergies Allergy/AdvReac Type Severity Reaction Status Date / Time No Known Allergies Allergy Verified 03/16/19 08:02 Review of Systems ROS Statement: Those systems with pertinent positive or pertinent negative responses have been documented in the HPI. ROS Other: All systems not noted in ROS Statement are negative. Past Medical History Past Medical History: No Reported History History of Any Multi-Drug Resistant Organisms: None Reported Past Surgical History: Orthopedic Surgery Additional Past Surgical History / Comment(s): Vasectomy Past Psychological History: No Psychological Hx Reported Smoking Status: Never smoker Past Alcohol Use History: Occasional Past Drug Use History: None Reported General Exam - General Exam Comments Initial Comments: 34-year-old male. Alert and oriented. No distress. General appearance: alert, in no apparent distress Head exam: Present: atraumatic, normocephalic, normal inspection Eye exam: Present: normal appearance, PERRL, EOMI. Absent: scleral icterus, con junctival injection, periorbital swelling ENT exam: Present: normal exam, mucous membranes moist Neck exam: Present: normal inspection. Absent: tenderness, meningismus, lymphadenopathy Respiratory exam: Present: normal lung sounds bilaterally. Absent: respiratory distress, wheezes, rales, rhonchi, stridor Cardiovascular Exam: Present: regular rate, normal rhythm, normal heart sounds. Absent: systolic murmur, diastolic murmur, rubs, gallop, clicks GI/Abdominal exam: Present: soft, normal bowel sounds. Absent: distended, tenderness, guarding, rebound, rigid Extremities exam: Present: normal inspection, full ROM, normal capillary refill. Absent: tenderness, pedal edema, joint swelling, calf tenderness Right Elbow exam: Present: normal inspection, full ROM Forearm Wrist exam: Present: normal inspection, full ROM Hand Wrist exam: Absent: normal inspection (Patient has a 2 cm irregular laceration from the nail bed being lifted up over the right thumb. He has normal sensation to the distal thumb, capillary refill less than 2 seconds. There is ecchymosis noted underneath the nail bed. Patient has full range of motion at the DIP joint of the thumb.) Vascular: Present: normal capillary refill Back exam: Present: normal inspection Neurological exam: Present: alert, oriented X3, CN II-XII intact Psychiatric exam: Present: normal affect, normal mood Skin exam: Present: warm Course Vital Signs 04/21/19 10:04 Temperature 98.0 F Pulse Rate 100 Respiratory 18 Rate Blood Pressure 118/72 O2 Sat by Pulse 95 Oximetry Procedures - Laceration Laceration #1 Site: hand ( right Thumb) Size (cm): 3 Description: irregular Anesthetic Used: lidocaine 1% Anesthesia Technique: nerve block Amount (mls): 5 Pre-repair: wound explored, irrigated extensively Type of Sutures: nylon Size of Sutures: 5-0 Number of Sutures: 6 (3 sutures used through the nail bed to tack the nail bed underneath to preserve the nail bed space.) Patient Tolerated Procedure: well, no complications - Orthopedic Splinting/Casting Injury #1 Side: right Upper Extremity Immobilizer: thumb spica, finger (other) Medical Decision Making - Medical Decision Making Patient is a 34-year-old male present today with a right thumb crushing injury from a tailgate hitch. Patient's nail is avulsed at the nailbed and sticking out. I used 3 sutures through the nail to tack the nailbed in place. I discussed the Patient he'll likely lose his nail. X-ray shows evidence of an open tuft fracture. Patient was given IM Kefzol and a starter pack for Keflex for tomorrow. Patient was placed in a thumb spica splint. Patient discharged at this time with pain medication prescription for Keflex. I discussed he needs follow-up with Dr. Santiago on Monday. - Radiology Data Radiology results: report reviewed Interarticular comminuted fracture of the distal talus of the first digit of the right hand. Disposition Clinical Impression: Open fracture of thumb Disposition: HOME SELF-CARE Condition: Good Instructions (If sedation given, give patient instructions): Hand Fracture (ED) Additional Instructions: Patient advised to follow-up with Dr. Santiago on Monday. Remain in the splint until seen by orthopedics. Take the antibiotics starting tomorrow as prescribed as well as pain medicine as needed. Ice the thumb. Patient should return to the emergency department if any alarming signs or symptoms occur. Prescriptions: Cephalexin [Keflex] 500 mg PO Q6HR #40 cap HYDROcodone/APAP 5-325MG [[place] 5-325] 1 tab PO Q6HR PRN #10 tab PRN Reason: Pain Is patient prescribed a controlled substance at d/c from ED?: Yes If prescribed controlled substance>3 days was MAPS reviewed?: Prescribed <3 Days If opioid is for acute pain is fill amount 7 days or less?: Yes If Rx opioid, was Start Talking consent form obtained?: Yes Referrals: Sadia Hodges MD [Primary Care Provider] - 1-2 days Roger Santiago DO [Medical Doctor] - 1-2 days Time of Disposition: 11:21
[2019-04-21] MEDS ORDERED: CEPHALEXIN 500MG STARTER PACK 4 CAP BTL PO STA (10:33)
[2019-04-21] MEDS ORDERED: ceFAZolin 1,000 MG VIAL IM STA (10:34)
--- NOTE | 2019-04-21 11:01 | XR ---
Right hand HISTORY: Laceration 3 views of the right hand There is a tuft fracture of the first digit of the right hand with associated soft tissue swelling, f racture is comminuted. Fracture line thought to extend into the interphalangeal joint within the dist al phalanx. IMPRESSION: Intra-articular comminuted fracture of the distal talus of the first digit of the right h and.
[2019-04-21 11:59] VITALS: BP 120/69; PULSE 89
== END 2019-04-21 11:30 | disposition home or self-care (01) ==
LOC: EC 09:48
DX: S62.521B Displaced fracture of distal phalanx of right thumb, initial encounter for open fracture (principal); Z79.899 Other long term (current) drug therapy; Z23 Encounter for immunization; W23.1XXA Caught, crushed, jammed, or pinched between stationary objects, initial encounter
CPT/HCPCS: 73130; 90715; 99283; 11760; 90471; 96372; J0690; J2001

== ENCOUNTER 2020-05-03 23:41 | Emergency (ER) | payer BC ==
--- NOTE | 2020-05-03 23:54 | ED ---
Abdominal Pain HPI - General Chief Complaint: Abdominal Pain Stated Complaint: Kidney Stones Time Seen by Provider: 05/03/20 23:52 Source: patient Mode of arrival: ambulatory Limitations: no limitations - History of Present Illness Initial Comments: Larry is a 35-year-old male with a history of kidney stones requiring stent placement in the past. Patient reports that at 8:30pm tonight he developed sudden stabbing left flank pain which was identical to previous kidney stone pain. No associated fevers chills dysuria, gross hematuria or vomiting. He does report mild nausea. He's not had any recent illness. He states that he stayed home attempting to avoid coming in due to his concerns about exposure from a virus but was unable to do so. - Related Data Home Medications Medication Instructions Recorded Confirmed Dextroamphetamine/Amphetamine 40 mg PO DAILY 03/16/19 03/16/19 [Adderall Xr] Multivitamins, Thera [Multivitamin 1 tab PO DAILY 03/16/19 03/16/19 (formulary)] Previous Rx's Medication Instructions Recorded Cephalexin [Keflex] 500 mg PO Q6HR #40 cap 04/21/19 HYDROcodone/APAP 5-325MG [[place] 1 tab PO Q6HR PRN #10 tab 04/21/19 5-325] HYDROcodone/APAP 5-325MG [[place] 1 tab PO Q6HR PRN 3 Days #12 tab 05/04/20 5-325] Allergies Allergy/AdvReac Type Severity Reaction Status Date / Time No Known Allergies Allergy Verified 05/03/20 23:47 Review of Systems ROS Statement: Those systems with pertinent positive or pertinent negative responses have been documented in the HPI. ROS Other: All systems not noted in ROS Statement are negative. Past Medical History Past Medical History: No Reported History Additional Past Medical History / Comment(s): kidney stones, History of Any Multi-Drug Resistant Organisms: None Reported Past Surgical History: Orthopedic Surgery Additional Past Surgical History / Comment(s): Vasectomy, lithotripsy with stents, Past Psychological History: No Psychological Hx Reported Smoking Status: Never smoker Past Alcohol Use History: Occasional Past Drug Use History: None Reported General Exam - General Exam Comments Initial Comments: Physical Exam GENERAL: Patient is well-developed and well-nourished. Appears uncomfortable, cannot find comfortable position, sweating HENT: Normocephalic, Atraumatic. EYES: PERRL, EOMI PULMONARY: Unlabored respirations. CARDIOVASCULAR: RRR Warm and well perfused extremities ABDOMEN: Non-distended SKIN: No rashes or bruising : Deferred NEUROLOGIC: Alert and oriented Normal speech Normal gait MUSCULOSKELETAL: Moving all extremities with no apparent injury PSYCHIATRIC: No SI/HI Limitations: no limitations Course Vital Signs 05/03/20 05/04/20 05/04/20 23:45 00:48 01:45 Temperature 97.7 F 98.4 F Pulse Rate 92 82 Respiratory 18 16 16 Rate Blood Pressure 142/73 143/73 O2 Sat by Pulse 95 98 Oximetry Medical Decision Making - Medical Decision Making The patient was seen and evaluated history is obtained from patient History and physical exam concerning for left-sided flank pain with history kidney stones X and labs were obtained consistent with some hemoconcentration no other significant abnormalities urinalysis with microscopic hematuria ultrasound confirms a kidney stone. Patient received Toradol and morphine with improvement in his pain. There is no hydronephrosis or signs of obstruction on ultrasound, results were discussed patient is comfortable with the plan for discharge home with pain management follow-up with Dr. Barrientos urology. Return parameters were discussed patient was discharged home in stable condition. - Lab Data Result diagrams: 05/04/20 00:00 05/04/20 00:00 Lab Results 05/04/20 05/04/20 05/04/20 Range/Units 00:00 00:00 01:05 WBC 7.5 (3.8-10.6) k/uL RBC 5.98 H (4.30-5.90) m/uL Hgb 17.3 (13.0-17.5) gm/dL Hct 54.8 H (39.0-53.0) % MCV 91.7 (80.0-100.0) fL MCH 29.0 (25.0-35.0) pg MCHC 31.6 (31.0-37.0) g/dL RDW 13.5 (11.5-15.5) % Plt Count 209 (150-450) k/uL Sodium 136 L (137-145) mmol/L Potassium 4.3 (3.5-5.1) mmol/L Chloride 104 (98-107) mmol/L Carbon Dioxide 25 (22-30) mmol/L Anion Gap 7 mmol/L BUN 9 (9-20) mg/dL Creatinine 1.09 (0.66-1.25) mg/dL Est GFR (CKD-EPI)AfAm >90 (>60 ml/min/1.73 sqM) Est GFR (CKD-EPI)NonAf 88 (>60 ml/min/1.73 sqM) Glucose 141 H (74-99) mg/dL Calcium 8.9 (8.4-10.2) mg/dL Urine Color Yellow Urine Appearance Clear (Clear) Urine pH 7.0 (5.0-8.0) Ur Specific [place] 1.021 (1.001-1.035) Urine Protein Negative (Negative) Urine Glucose (UA) Negative (Negative) Urine Ketones Negative (Negative) Urine Blood Trace H (Negative) Urine Nitrite Negative (Negative) Urine Bilirubin Negative (Negative) Urine Urobilinogen 3.0 (<2.0) mg/dL Ur Leukocyte Esterase Negative (Negative) Urine RBC 14 H (0-5) /hpf Urine WBC 1 (0-5) /hpf Ur Squamous Epith Cells <1 (0-4) /hpf Urine Bacteria Rare H (None) /hpf Urine Mucus Rare H (None) /hpf Disposition Clinical Impression: Nephrolithiasis Disposition: HOME SELF-CARE Condition: Stable Prescriptions: HYDROcodone/APAP 5-325MG [[place] 5-325] 1 tab PO Q6HR PRN 3 Days #12 tab PRN Reason: Pain Is patient prescribed a controlled substance at d/c from ED?: Yes Referrals: Sadia Hodges MD [Primary Care Provider] - 1-2 days
[2020-05-03] MEDS ORDERED: KETOROLAC 30 MG/ML 1 ML VIAL IVP STA (23:55)
[2020-05-04] MEDS ORDERED: MORPHINE SULFATE 4 MG/ML SYRINGE IVP STA (00:02)
[2020-05-04 00:11] LABS: HCT 54.8 % (39.0-53.0); HGB 17.3 gm/dL (13.0-17.5); MCHC 31.6 g/dL (31.0-37.0); MCV 91.7 fL (80.0-100.0); Mean Platelet Volume 8.1; Platelet Count 209 k/uL (150-450); RBC 5.98 m/uL (4.30-5.90); RDW 13.5 % (11.5-15.5); WBC 7.5 k/uL (3.8-10.6)
[2020-05-04] MEDS ORDERED: ONDANSETRON 4 MG/2 ML VIAL IVP STA (00:11)
[2020-05-04 00:23] LABS: African American GFR (CKD) >90 (>60 ml/min/1.73 sqM); Anion Gap 7 mmol/L; Blood Urea Nitrogen 9 mg/dL (9-20); Calcium 8.9 mg/dL (8.4-10.2); Carbon Dioxide 25 mmol/L (22-30); Chloride 104 mmol/L (98-107); Glucose 141 mg/dL (74-99); Non-African American GFR(CKD) 88 (>60 ml/min/1.73 sqM); Potassium 4.3 mmol/L (3.5-5.1); Sodium 136 mmol/L (137-145)
--- NOTE | 2020-05-04 01:19 | US ---
EXAMINATION TYPE: US renals and bladder DATE OF EXAM: 05/04/2020 COMPARISON: CT 03/16/2019 CLINICAL HISTORY: left flank pain hx of stones requiring stents. EXAM MEASUREMENTS: Right Kidney: 11.9 x 5.9 x 5.3 cm Left Kidney: 11.4 x 5.7 x 6.1 cm Spleen: 14.2 cm Right Kidney: No hydronephrosis or masses seen Left Kidney: No hydronephrosis visualized. Multiple echogenic foci visualized, largest measuring 0.9 cm Bladder: Not distended Spleen: Enlarged There is no evidence for hydronephrosis at this point in time. No masses are identified. IMPRESSION: There is evidence of left renal calculi. No hydronephrosis. No bladder mass seen.
--- NOTE | 2020-05-04 01:22 | XR ---
EXAMINATION TYPE: XR KUB DATE OF EXAM: 05/04/2020 COMPARISON: NONE HISTORY: Left-sided flank pain TECHNIQUE: FINDINGS: 2 views upright show no sign of intestinal obstruction or pneumoperitoneum. Fecal pattern i s normal. I see no pathologic calcifications. Lung bases are clear. There is no sign of a mass. IMPRESSION: Nonacute abdomen.
[2020-05-04 01:25] LABS: Appearance,Urine Clear (Clear); Bacteria,Urine Rare /hpf; Bilirubin,Urine Negative (Negative); Blood,Urine Trace (Negative); Color,Urine Yellow; Glucose,Urine (UA) Negative (Negative); Ketones,Urine Negative (Negative); Leukocyte Esterase,Urine Negative (Negative); Mucus,Urine Rare /hpf; Nitrite,Urine Negative (Negative); Protein,Urine Negative (Negative); RBC,Urine 14 /hpf (0-5); Specific Gravity,Urine 1.021 (1.001-1.035); Squamous Epithelial Cell,Urine <1 /hpf (0-4); WBC,Urine 1 /hpf (0-5)
[2020-05-04 01:27] VITALS: RESP 16
[2020-05-04] MEDS ORDERED: ACET/COD 300 MG/30 MG STARTER PACK 6 TAB BTL PO STA (01:33)
[2020-05-04] MEDS ORDERED: ONDANSETRON 4 MG ODT STARTER PACK 2 TAB BTL PO STA (01:33)
[2020-05-04 01:51] VITALS: BP 143/73; PULSE 82; TEMP 98.4
== END 2020-05-04 01:45 | disposition home or self-care (01) ==
LOC: EC 23:41
DX: N20.0 Calculus of kidney (principal); Z98.52 Vasectomy status; Z87.442 Personal history of urinary calculi
CPT/HCPCS: 36415; 80048; 85027; 81001; 74018; 76770; 99284; 96374; 96375 ×2; J2270; J2405; J1885; S0119

== ENCOUNTER 2023-05-01 21:31 | Emergency (ER) | payer BC ==
[2023-05-01 22:12] LABS: Basophils % (A) 0 %; Eosinophils # (A) 0.1 k/uL (0-0.7); Eosinophils % (A) 3 %; HCT 53.3 % (39.0-53.0); HGB 18.3 gm/dL (13.0-17.5); Lymphocytes % (A) 23 %; MCH 30.2 pg (25.0-35.0); MCHC 34.3 g/dL (31.0-37.0); MCV 88.1 fL (80.0-100.0); Mean Platelet Volume 9.8; Monocytes # (A) 0.3 k/uL (0-1.0); Monocytes % (A) 6 %; Neutrophils # (A) 2.9 k/uL (1.3-7.7); Neutrophils % (A) 66 %; Platelet Count 140 k/uL (150-450); RBC 6.05 m/uL (4.30-5.90); RDW 13.9 % (11.5-15.5); WBC 4.4 k/uL (3.8-10.6)
[2023-05-01 22:21] LABS: ALT 72 U/L (4-49); AST 52 U/L (17-59); African American GFR (CKD) 83 (>60 ml/min/1.73 sqM); Albumin 4.9 g/dL (3.5-5.0); Alkaline Phosphatase 82 U/L (38-126); Anion Gap 12 mmol/L; Blood Urea Nitrogen 11 mg/dL (9-20); Calcium 9.8 mg/dL (8.4-10.2); Carbon Dioxide 25 mmol/L (22-30); Chloride 99 mmol/L (98-107); Glucose 91 mg/dL (74-99); Magnesium 1.8 mg/dL (1.6-2.3); Non-African American GFR(CKD) 72 (>60 ml/min/1.73 sqM); Sodium 136 mmol/L (137-145); Total Bilirubin 1.3 mg/dL (0.2-1.3); Total Protein 8.1 g/dL (6.3-8.2)
[2023-05-01 22:25] LABS: INR 1.1 (<1.2); Partial Thromboplastin Time 24.8 sec (22.0-30.0); Prothrombin Time 11.2 sec (9.0-12.0)
--- NOTE | 2023-05-01 22:33 | XR ---
EXAMINATION TYPE: XR chest 2V DATE OF EXAM: 05/01/2023 10:11 PM COMPARISON: None TECHNIQUE: XR chest 2V Frontal and lateral views of the chest. CLINICAL INDICATION:Male, 38 years old with history of Chest Pain; FINDINGS: Lungs/Pleura: Right perihilar airspace opacities. There is no evidence of pleural effusion, focal con solidation, or pneumothorax. Pulmonary vascularity: Unremarkable. Heart/mediastinum: Cardiomediastinal silhouette is unremarkable. Musculoskeletal: No acute osseous pathology. IMPRESSION: Right perihilar airspace opacities correlate for pneumonia.
[2023-05-01] MEDS ORDERED: KETOROLAC 15 MG/ML 1 ML VIAL IVP STA (23:23)
--- NOTE | 2023-05-02 00:16 | ED ---
Chest Pain HPI - General Chief Complaint: Chest Pain Stated Complaint: CHEST PAIN Source: patient Mode of arrival: ambulatory Limitations: no limitations - History of Present Illness Initial Comments: 38-year-old male with no reported past medical history presents emergency room reporting chest pain. States that it started on Monday and was intermittent however has become more constant. Located over the left chest wall. Worse with movement and deep inspiration. Denies any trauma or overuse. Does admit to feeling short of breath. Has had previous history of pleurisy with no cause. He has not been taking anything at home for the pain. Denies previous history of cardiac disease. No family history of cardiac disease. He has never had any type of cardiac evaluation. No calf pain or swelling. No pedal edema. Does admit to recent travel however this was greater than one month ago. No fevers chills or cough. No other alleviating, precipitating or modifying factors - Related Data Home Medications Medication Instructions Recorded Confirmed Dextroamphetamine/Amphetamine 40 mg PO DAILY 03/16/19 03/16/19 [Adderall Xr] Multivitamins, Thera [Multivitamin 1 tab PO DAILY 03/16/19 03/16/19 (formulary)] Previous Rx's Medication Instructions Recorded Cephalexin [Keflex] 500 mg PO Q6HR #40 cap 04/21/19 HYDROcodone/APAP 5-325MG [[place] 1 tab PO Q6HR PRN #10 tab 04/21/19 5-325] HYDROcodone/APAP 5-325MG [[place] 1 tab PO Q6HR PRN 3 Days #12 tab 05/04/20 5-325] Allergies Allergy/AdvReac Type Severity Reaction Status Date / Time No Known Allergies Allergy Verified 05/03/20 23:47 Review of Systems ROS Statement: Those systems with pertinent positive or pertinent negative responses have been documented in the HPI. ROS Other: All systems not noted in ROS Statement are negative. Past Medical History Past Medical History: No Reported History Additional Past Medical History / Comment(s): kidney stones, History of Any Multi-Drug Resistant Organisms: None Reported Past Surgical History: Orthopedic Surgery Additional Past Surgical History / Comment(s): Vasectomy, lithotripsy with stents, Past Psychological History: No Psychological Hx Reported Past Alcohol Use History: Occasional Past Drug Use History: None Reported General Exam Limitations: no limitations General appearance: alert, in no apparent distress Head exam: Present: atraumatic, normocephalic, normal inspection Eye exam: Present: normal appearance, PERRL, EOMI. Absent: scleral icterus, conjunctival injection, periorbital swelling ENT exam: Present: normal exam, mucous membranes moist Neck exam: Present: normal inspection. Absent: tenderness, meningismus, lymphadenopathy Respiratory exam: Present: normal lung sounds bilaterally, chest wall tenderness (Left sided underneath the patient's left breast. No palpable step-offs). Absent: respiratory distress, wheezes, rales, rhonchi, stridor Cardiovascular Exam: Present: regular rate, normal rhythm, normal heart sounds. Absent: systolic murmur, diastolic murmur, rubs, gallop, clicks GI/Abdominal exam: Present: soft, normal bowel sounds. Absent: distended, tenderness, guarding, rebound, rigid Extremities exam: Present: normal inspection, full ROM, normal capillary refill. Absent: tenderness, pedal edema, joint swelling, calf tenderness Back exam: Present: normal inspection Neurological exam: Present: alert, oriented X3, CN II-XII intact Psychiatric exam: Present: normal affect, normal mood Skin exam: Present: warm, dry, intact, normal color. Absent: rash Course Vital Signs 05/01/23 05/01/23 05/01/23 21:34 22:37 22:46 Temperature 98.0 F Pulse Rate 93 85 Pulse Rate [ 68 Behavioral Health Tech ] Respiratory 22 16 Rate Blood Pressure 142/95 149/95 O2 Sat by Pulse 98 98 Oximetry 05/01/23 05/02/23 22:48 00:23 Temperature 97.9 F Pulse Rate 78 Pulse Rate [ Behavioral Health Tech ] Respiratory 20 16 Rate Blood Pressure 154/105 O2 Sat by Pulse 98 Oximetry Chest Pain MDM - MDM Was pt. sent in by a medical professional or institution (, PA, COIN PURSE ASSEMBLER, urgent care, hospital, or fci...) When possible be specific @ -No Did you speak to anyone other than the patient for history (EMS, parent, family, police, friend...)? What history was obtained from this source @ -No Did you review nursing and triage notes (agree or disagree)? Why? @ -I reviewed and agree with nursing and triage notes Were old charts reviewed (outside hosp., previous admission, EMS record, old EKG, old radiological studies, urgent care reports/EKG's, fci records)? Report findings @ -No old charts were reviewed Differential Diagnosis (chest pain, altered mental status, abdominal pain women, abdominal pain men, vaginal bleeding, weakness, fever, dyspnea, syncope, headache, dizziness, GI bleed, back pain, seizure, CVA, palpatations, mental health, musculoskeletal)? @ -Differential Chest Pain: Stable Angina, Unstable Angina, STEMI, NSTEMI Aortic Dissection, Pneumothorax, Musculoskeletal, Esophageal Spasm GERD, Cholecystitis, Pancreatitis, Zoster, this is not meant to be an all-inclusive list. EKG interpreted by me (3pts min.). @ -EKG interpreted by me demonstrates sinus rhythm with a rate of 92. [place] Interval 152. QRS 102. QTC of 392. No acute ST segment elevations or depressions X-rays interpreted by me (1pt min.). @ -Yes and demonstrates no acute intrathoracic process CT interpreted by me (1pt min.). @ -None done U/S interpreted by me (1pt. min.). @ -None done What testing was considered but not performed or refused? (CT, X-rays, U/S, labs)? Why? @ -CT was considered as the patient still has considerable amount of pain after Toradol - patient refused What meds were considered but not given or refused? Why? @ - opiate pain medications however patient refused Did you discuss the management of the patient with other professionals (professionals i.e. , PA, COIN PURSE ASSEMBLER, lab, RT, psych nurse, dialysis social worker, paper gluing operator, teacher, ict customer support officer, case packer and sealer)? Give summary @ -No Was smoking cessation discussed for >3mins.? @ -No Was critical care preformed (if so, how long)? @ -No Were there social determinants of health that impacted care today? How? (Homelessness, low income, unemployed, alcoholism, drug addiction, transportation, low edu. Level, literacy, decrease access to med. care, [facility], rehab)? @ -No Was there de-escalation of care discussed even if they declined (Discuss DNR or withdrawal of care, Hospice)? DNR status @ -No What co-morbidities impacted this encounter? (DM, HTN, Smoking, COPD, CAD, Cancer, CVA, ARF, Chemo, Hep., AIDS, mental health diagnosis, sleep apnea, morbid obesity)? @ -None Was patient admitted / discharged? Hospital course, mention meds given and route, prescriptions, significant lab abnormalities, going to OR and other pertinent info. @ -Upon arrival patient was placed into room 24. A thorough history and physical exam is performed. IV access is established and laboratory studies were conducted. Patient was given Toradol for pain. Laboratory studies demonstrate no acute process. Troponin is negative. D-dimer is negative. Chest x-ray demonstrates no acute process. I did offer the patient something stronger for pain control however he refused. Offered CT for further evaluation of his continued pain however he refused. I offered admission for further evaluation of his pain however he refused. Patient will be discharged home at this time and instructed to follow up with his PCP. Recommended echo and Holter monitor at this time. Return for any new or worsening symptoms per patient was agreeable to this plan and was discharged home in stable condition Undiagnosed new problem with uncertain prognosis? @ -Yes Drug Therapy requiring intensive monitoring for toxicity (Heparin, Nitro, Insulin, Cardizem)? @ -No Were any procedures done? @ -No Diagnosis/symptom? @ -Acute chest pain, possible pleurisy Acute, or Chronic, or Acute on Chronic? @ -Acute Uncomplicated (without systemic symptoms) or Complicated (systemic symptoms)? @ -Complicated Side effects of treatment? @ -No Exacerbation, Progression, or Severe Exacerbation? @ -No Poses a threat to life or bodily function? How? (Chest pain, [place], [place], pneumonia, PE, COPD, DKA, ARF, appy, cholecystitis, CVA, Diverticulitis, Homicidal, Suici hoang, threat to staff... and all critical care pts) @ -No Disposition Clinical Impression: Chest pain Disposition: HOME SELF-CARE Condition: Stable Instructions (If sedation given, give patient instructions): Chest Pain (ED) Additional Instructions: You need an echo, Holter monitoring and possibly a stress test. Take the Toradol and follow-up. If you end up having recurrent diagnosed pleurisy, you may benefit from seeing a lung doctor Is patient prescribed a controlled substance at d/c from ED?: No Referrals: Hansa Polanco III, MD [Primary Care Provider] - 1-2 days Time of Disposition: 00:16
[2023-05-02 00:24] VITALS: BP 154/105; PULSE 78; RESP 16; TEMP 97.9
== END 2023-05-02 00:23 | disposition home or self-care (01) ==
LOC: EC 21:31
DX: R07.89 Other chest pain (principal)
CPT/HCPCS: 36415; 93005; 85379; 80053; 83735; 84484; 85025; 85610; 85730; 71046; 99284; 96374; J1885

== ENCOUNTER 2024-04-12 22:48 | Emergency (ER) | payer BC ==
[2024-04-12] MEDS: SODIUM CHLORIDE 0.9% 1,000 ML IV ONE (23:40)
[2024-04-12] MEDS: HYDROmorphone 0.5 MG/0.5 ML SYRINGE IVP STA (23:40)
[2024-04-12] MEDS: KETOROLAC 15 MG/ML 1 ML VIAL IVP STA (23:41)
[2024-04-13] MEDS: HYDROmorphone 0.5 MG/0.5 ML SYRINGE IVP STA (00:05)
[2024-04-13] MEDS: HYDROmorphone 1 MG/ML 1 ML SYRINGE IVP STA (00:50)
--- NOTE | 2024-04-13 00:52 | ED ---
Abdominal Pain HPI - General Chief Complaint: Abdominal Pain Stated Complaint: abd pain Time Seen by Provider: 04/12/24 23:32 Source: patient Mode of arrival: ambulatory Limitations: no limitations - History of Present Illness Initial Comments: 39-year-old male presenting with chief complaint of left-sided flank pain ongoing for the last 3 to 4 hours. Patient has history of kidney stones and states that this pain feels similar. He admits to nausea and vomiting. Denies dysuria or hematuria. - Related Data Home Medications Medication Instructions Recorded Confirmed Dextroamphetamine/Amphetamine 40 mg PO DAILY 03/16/19 03/16/19 [Adderall Xr] Multivitamins, Thera [Multivitamin 1 tab PO DAILY 03/16/19 03/16/19 (formulary)] Previous Rx's Medication Instructions Recorded Cephalexin [Keflex] 500 mg PO Q6HR #40 cap 04/21/19 HYDROcodone/APAP 5-325MG [[place] 1 tab PO Q6HR PRN #10 tab 04/21/19 5-325] HYDROcodone/APAP 5-325MG [[place] 1 tab PO Q6HR PRN 3 Days #12 tab 05/04/20 5-325] HYDROcodone/APAP 7.5-325MG [[place] 1 tab PO Q6HR PRN 3 Days #12 tab 04/13/24 7.5-325] Ondansetron Odt [Zofran Odt] 4 mg PO Q8HR PRN #20 tab 04/13/24 Tamsulosin [Flomax] 0.4 mg PO DAILY #10 cap 04/13/24 Allergies Allergy/AdvReac Type Severity Reaction Status Date / Time No Known Allergies Allergy Verified 04/12/24 23:17 Review of Systems ROS Statement: Those systems with pertinent positive or pertinent negative responses have been documented in the HPI. ROS Other: All systems not noted in ROS Statement are negative. Past Medical History Past Medical History: No Reported History Additional Past Medical History / Comment(s): kidney stones, History of Any Multi-Drug Resistant Organisms: None Reported Past Surgical History: Orthopedic Surgery Additional Past Surgical History / Comment(s): Vasectomy, lithotripsy with stents, Past Psychological History: No Psychological Hx Reported Smoking Status: Never smoker Past Alcohol Use History: Occasional Past Drug Use History: None Reported General Exam Limitations: no limitations General appearance: alert, in no apparent distress Head exam: Present: atraumatic, normocephalic Eye exam: Present: normal appearance, EOMI Neck exam: Present: normal inspection. Absent: meningismus Respiratory exam: Absent: respiratory distress Cardiovascular Exam: Present: regular rate Neurological exam: Present: alert, oriented X3 Psychiatric exam: Present: normal affect, normal mood Skin exam: Present: warm, dry Course Vital Signs 04/12/24 04/13/24 04/13/24 23:15 00:56 03:05 Temperature 97.8 F 97.8 F 97.9 F Pulse Rate 95 92 74 Respiratory 20 17 18 Rate Blood Pressure 147/79 144/99 119/53 O2 Sat by Pulse 97 96 95 Oximetry Medical Decision Making - Medical Decision Making Was pt. sent in by a medical professional or institution (FRAN Rao, BEAD WRAPPER, urgent care, hospital, or [facility]...) When possible be specific @ -No Did you speak to anyone other than the patient for history (EMS, parent, family, police, friend...)? What history was obtained from this source @ -No Did you review nursing and triage notes (agree or disagree)? Why? @ -I reviewed and agree with nursing and triage notes Were old charts reviewed (outside hosp., previous admission, EMS record, old EKG, old radiological studies, urgent care reports/EKG's, [facility] records)? Report findings @ -No old charts were reviewed Differential Diagnosis (chest pain, altered mental status, abdominal pain women, abdominal pain men, vaginal bleeding, weakness, fever, dyspnea, syncope, headache, dizziness, GI bleed, back pain, seizure, CVA, palpatations, mental health, musculoskeletal)? @ - MDM Differential Back Pain: Strain, zoster, cauda equina syndrome, epidural abscess, vertebral osteomyelitis, discitis, fracture, subluxation, disc herniation, DJD, spinal stenosis, dissection, AAA, pancreatitis, peptic ulcer disease, pyelonephritis, kidney stone this is not meant to be an all-inclusive list. EKG interpreted by me (3pts min.). @ -As above X-rays interpreted by me (1pt min.). @ -None done CT interpreted by me (1pt min.). @ -CT shows mild left hydroureteronephrosis secondary to obstructing 4 mm calculus in the distal left ureter. This is just past the pelvic brim. Prostatomegaly, correlate with serum PSA. Nonobstructing bilateral renal calculi. Fat-containing umbilical hernia. U/S interpreted by me (1pt. min.). @ -None done What testing was considered but not performed or refused? (CT, X-rays, U/S, labs)? Why? @ -None What meds were considered but not given or refused? Why? @ -None Did you discuss the management of the patient with other professionals (professionals i.e. , PA, BEAD WRAPPER, lab, RT, psych nurse, social media developer, equipment tech, teacher, operations officer, case folder)? Give summary @ -No Was smoking cessation discussed for >3mins.? @ -No Was critical care preformed (if so, how long)? @ -No Were there social determinants of health that impacted care today? How? (Homelessness, low income, unemployed, alcoholism, drug addiction, transportation, low edu. Level, literacy, decrease access to med. care, half-way, rehab)? @ -No Was there de-escalation of care discussed even if they declined (Discuss DNR or withdrawal of care, Hospice)? DNR status @ -No What co-morbidities impacted this encounter? (DM, HTN, Smoking, COPD, CAD, Cancer, CVA, ARF, Chemo, Hep., AIDS, mental health diagnosis, sleep apnea, morbid obesity)? @ -None Was patient admitted / discharged? Hospital course, mention meds given and route, prescriptions, significant lab abnormalities, going to OR and other pertinent info. @ -39-year-old male presenting with chief complaint of left-sided flank pain. History of kidney stones. CT shows 4 mm obstructing stone. Urine shows 34 RBCs. On reassessment patient's pain is well-controlled. Instructed to follow- up with urology. Discharged home. Follow-up with PCP. Report back to ER with any new or worsening symptoms. Discussed return parameters and answered all questions. Patient conveyed verbal understanding and agreed to the plan. I discussed this case in detail with my attending Dr. Perez Undiagnosed new problem with uncertain prognosis? @ -No Drug Therapy requiring intensive monitoring for toxicity (Heparin, Nitro, Insulin, Cardizem)? @ -No Were any procedures done? @ -No Diagnosis/symptom? @ -Kidney stone Acute, or Chronic, or Acute on Chronic? @ -Acute Uncomplicated (without systemic symptoms) or Complicated (systemic symptoms)? @ -Uncomplicated Side effects of treatment? @ -No Exacerbation, Progression, or Severe Exacerbation? @ -No Poses a threat to life or bodily function? How? (Chest pain, [place], [place], pneumonia, PE, COPD, DKA, ARF, appy, cholecystitis, CVA, Diverticulitis, Homicidal, Suicidal, threat to staff... and all critical care pts) @ -No - Lab Data Lab Results 04/13/24 Range/Units 01:52 Urine Color Yellow Urine Appearance Cloudy (Clear) Urine pH 5.5 (5.0-8.0) Ur Specific [place] 1.028 (1.001-1.035) Urine Protein 1+ H (Negative) Urine Glucose (UA) Negative (Negative) Urine Ketones 1+ H (Negative) Urine Blood Moderate H (Negative) Urine Nitrite Negative (Negative) Urine Bilirubin Negative (Negative) Urine Urobilinogen <2.0 (<2.0) mg/dL Ur Leukocyte Esterase Negative (Negative) Urine RBC 34 H (0-5) /hpf Urine WBC 2 (0-5) /hpf Ur Squamous Epith Cells <1 (0-4) /hpf Amorphous Sediment Rare H (None) /hpf Urine Bacteria Rare H (None) /hpf Hyaline Casts 4 H (0-2) /lpf Urine Mucus Few H (None) /hpf Disposition Clinical Impression: Kidney stone Disposition: HOME SELF-CARE Condition: Good Instructions (If sedation given, give patient instructions): Kidney Stones (ED) Additional Instructions: Follow-up with PCP and urology. Report back to ER with any new or worsening symptoms. Prescriptions: Tamsulosin [Flomax] 0.4 mg PO DAILY #10 cap HYDROcodone/APAP 7.5-325MG [[place] 7.5-325] 1 tab PO Q6HR PRN 3 Days #12 tab PRN Reason: Pain Ondansetron Odt [Zofran Odt] 4 mg PO Q8HR PRN #20 tab PRN Reason: Nausea Is patient prescribed a controlled substance at d/c from ED?: Yes When asked, does pt state using other controlled substances?: No If prescribed controlled substance>3 days was MAPS reviewed?: Prescribed <3 Days If opioid is for acute pain is fill amount 7 days or less?: Yes Referrals: None,Stated [Primary Care Provider] - 1-2 days Wolfgang Lopez MD [STAFF PHYSICIAN] - 1-2 days Time of Disposition: 02:35
--- NOTE | 2024-04-13 01:27 | CT ---
EXAMINATION TYPE: CT abdomen pelvis wo con CT DLP: 1083.9 mGycm, Automated exposure control for dose reduction was used. DATE OF EXAM: 04/13/2024 12:02 AM COMPARISON: CT abdomen pelvis most recent from 03/16/2019 CLINICAL INDICATION:Male, 39 years old with history of L flank pain; L FLANK PAIN TECHNIQUE: Axial CT abdomen pelvis wo con;Sagittal and coronal reformats were created on a separate workstation. Contrast used: mL of , (none if empty) Oral contrast used: without Oral Contrast (none if empty) FINDINGS: LOWER CHEST: Unremarkable ABDOMEN LIVER: Unremarkable GALLBLADDER AND BILE DUCTS: Unremarkable. PANCREAS: Unremarkable. SPLEEN: Unremarkable. ADRENAL GLANDS: Unremarkable. KIDNEYS AND URETERS: Nonobstructing renal calculi measuring up to 4 mm on the left and 3 mm in the ri ght. There is mild left hydroureteronephrosis secondary obstructing 4 mm calculus in the distal left ureter past the pelvic brim. No additional calculi visualized. BLADDER: Unremarkable REPRODUCTIVE: Prostate is enlarged in size measuring 4.9 cm in transverse dimension. ABDOMEN & PELVIS STOMACH AND BOWEL: No evidence of bowel obstruction. PERITONEUM/RETROPERITONEUM: No evidence of pneumoperitoneum or free fluid. VASCULATURE: No evidence of aortic aneurysm. MUSCULOSKELETAL: No acute osseous abnormalities LYMPH NODES: No gross evidence for lymphadenopathy. SOFT TISSUE/ABDOMINAL WALL: Bilateral fat-containing inguinal hernias. Fat-containing umbilical hernia. IMPRESSION: 1. Mild left hydroureteronephrosis secondary obstructing 4 mm calculus in the distal left ureter. Th is is just past the pelvic brim. 2. Prostatomegaly, correlate with serum PSA. 3. Nonobstructing bilateral renal calculi. 4. Fat-containing umbilical hernia.
[2024-04-13 02:21] LABS: Amorphous Sediment,Urine Rare /hpf; Appearance,Urine Cloudy (Clear); Bacteria,Urine Rare /hpf; Bilirubin,Urine Negative (Negative); Blood,Urine Moderate (Negative); Color,Urine Yellow; Glucose,Urine (UA) Negative (Negative); Hyaline Casts,Urine 4 /lpf (0-2); Ketones,Urine 1+ (Negative); Leukocyte Esterase,Urine Negative (Negative); Mucus,Urine Few /hpf; Nitrite,Urine Negative (Negative); PH, Urine 5.5 (5.0-8.0); Protein,Urine 1+ (Negative); RBC,Urine 34 /hpf (0-5); Specific Gravity,Urine 1.028 (1.001-1.035); Squamous Epithelial Cell,Urine <1 /hpf (0-4); Urobilinogen,Urine <2.0 mg/dL (<2.0); WBC,Urine 2 /hpf (0-5)
[2024-04-13] MEDS: ACET/COD 300 MG/30 MG STARTER PACK 6 TAB BTL PO STA (02:54)
[2024-04-13] MEDS: ONDANSETRON 4 MG ODT STARTER PACK 2 TAB BTL PO STA (02:55)
[2024-04-13 03:50] VITALS: BP 119/53; PULSE 74; RESP 18; TEMP 97.9
== END 2024-04-13 03:08 | disposition home or self-care (01) ==
LOC: EC 22:48
DX: N13.2 Hydronephrosis with renal and ureteral calculous obstruction (principal); K42.9 Umbilical hernia without obstruction or gangrene
CPT/HCPCS: 99284; 96374; 96375; 96376 ×2; 81001; 74176; J1170 ×3; J1885; S0119

== ENCOUNTER 2024-04-14 18:24 | Emergency (ER) | payer BC ==
[2024-04-14 18:57] VITALS: RESP 18; TEMP 98.1
--- NOTE | 2024-04-14 19:24 | ED ---
Abdominal Pain HPI - General Chief Complaint: Abdominal Pain Stated Complaint: L flank pain Time Seen by Provider: 04/14/24 19:00 Source: patient, RN notes reviewed Mode of arrival: ambulatory Limitations: no limitations - History of Present Illness Initial Comments: 39-year-old male with history of kidney stones presenting to the ER with left flank pain x 1 day. States he was here in the ER 2 days ago with same symptoms and he was diagnosed with left-sided kidney stone. He reports he passed the kidney stone yesterday morning and symptoms resolved. However, the pain began again last night and patient believes he is passing another kidney stone. The CT scan performed 2 nights ago revealed he had multiple stones on both sides. Admits nausea but denies vomiting or fever. - Related Data Home Medications Medication Instructions Recorded Confirmed Dextroamphetamine/Amphetamine 40 mg PO DAILY 03/16/19 03/16/19 [Adderall Xr] Multivitamins, Thera [Multivitamin 1 tab PO DAILY 03/16/19 03/16/19 (formulary)] Previous Rx's Medication Instructions Recorded Cephalexin [Keflex] 500 mg PO Q6HR #40 cap 04/21/19 HYDROcodone/APAP 5-325MG [[place] 1 tab PO Q6HR PRN #10 tab 04/21/19 5-325] HYDROcodone/APAP 5-325MG [[place] 1 tab PO Q6HR PRN 3 Days #12 tab 05/04/20 5-325] HYDROcodone/APAP 7.5-325MG [[place] 1 tab PO Q6HR PRN 3 Days #12 tab 04/13/24 7.5-325] Ondansetron Odt [Zofran Odt] 4 mg PO Q8HR PRN #20 tab 04/13/24 Tamsulosin [Flomax] 0.4 mg PO DAILY #10 cap 04/13/24 Allergies Allergy/AdvReac Type Severity Reaction Status Date / Time No Known Allergies Allergy Verified 04/14/24 18:43 Review of Systems ROS Statement: Those systems with pertinent positive or pertinent negative responses have been documented in the HPI. ROS Other: All systems not noted in ROS Statement are negative. Past Medical History Past Medical History: No Reported History Additional Past Medical History / Comment(s): kidney stones, History of Any Multi-Drug Resistant Organisms: None Reported Past Surgical History: Orthopedic Surgery Additional Past Surgical History / Comment(s): Vasectomy, lithotripsy with stents, Past Psychological History: No Psychological Hx Reported Smoking Status: Never smoker Past Alcohol Use History: Occasional Past Drug Use History: None Reported General Exam Limitations: no limitations General appearance: alert, in no apparent distress Eye exam: Present: normal appearance, PERRL, EOMI. Absent: scleral icterus, conjunctival injection, periorbital swelling ENT exam: Present: normal exam, mucous membranes moist Neck exam: Present: normal inspection. Absent: tenderness, meningismus, lymphadenopathy Respiratory exam: Present: normal lung sounds bilaterally. Absent: respiratory distress, wheezes, rales, rhonchi, stridor Cardiovascular Exam: Present: regular rate, normal rhythm, normal heart sounds. Absent: systolic murmur, diastolic murmur, rubs, gallop, clicks GI/Abdominal exam: Present: soft, normal bowel sounds. Absent: distended, tenderness, guarding, rebound, rigid Extremities exam: Present: normal inspection, full ROM, normal capillary refill. Absent: tenderness, pedal edema, joint swelling, calf tenderness Back exam: Present: normal inspection. Absent: CVA tenderness (R), CVA tenderness (L) Neurological exam: Present: alert, oriented X3, CN II-XII intact Psychiatric exam: Present: normal affect, normal mood Skin exam: Present: warm, dry, intact, normal color. Absent: rash Course Vital Signs 04/14/24 04/14/24 18:40 20:45 Temperature 98.1 F Pulse Rate 102 H 83 Respiratory 18 18 Rate Blood Pressure 154/87 121/78 O2 Sat by Pulse 98 96 Oximetry Medical Decision Making - Medical Decision Making Was pt. sent in by a medical professional or institution (, PA, AUTOMATIC FURNACE OPERATOR, urgent care, hospital, or fci...) When possible be specific @ -No Did you speak to anyone other than the patient for history (EMS, parent, family, police, friend...)? What history was obtained from this source @ -No Did you review nursing and triage notes (agree or disagree)? Why? @ -I reviewed and agree with nursing and triage notes Were old charts reviewed (outside hosp., previous admission, EMS record, old EKG, old radiological studies, urgent care reports/EKG's, fci records)? Report findings @ -No old charts were reviewed Differential Diagnosis (chest pain, altered mental status, abdominal pain women, abdominal pain men, vaginal bleeding, weakness, fever, dyspnea, syncope, headache, dizziness, GI bleed, back pain, seizure, CVA, palpatations, mental health, musculoskeletal)? @ -Differential Abdominal Pain Men: Appendicitis, cholecystitis, diverticulosis, ischemic bowel, pancreatitis, hepatitis, UTI, gastroenteritis, AAA, incarcerated hernia, bowel obstruction, constipation, inflammatory bowel, hepatitis, peptic ulcer disease, splenic infarction, perforated viscus, testicular torsion, this is not meant to be an all-inclusive list EKG interpreted by me (3pts min.). @ -None X-rays interpreted by me (1pt min.). @ -None done CT interpreted by me (1pt min.). @ -None done U/S interpreted by me (1pt. min.). @ -None done What testing was considered but not performed or refused? (CT, X-rays, U/S, labs)? Why? @ -CT scan not performed due to patient had CT scan 1 day ago that showed bilateral kidney stones What meds were considered but not given or refused? Why? @ -Patient declined Zofran Did you discuss the management of the patient with other professionals (professionals i.e. , PA, AUTOMATIC FURNACE OPERATOR, lab, RT, psych nurse, home health care social worker, black top paver operator, teacher, business liaison officer, porter sample case)? Give summary @ -No Was smoking cessation discussed for >3mins.? @ -No Was critical care preformed (if so, how long)? @ -No Were there social determinants of health that impacted care today? How? (Homelessness, low income, unemployed, alcoholism, drug addiction, transportation, low edu. Level, literacy, decrease access to med. care, retirement, rehab)? @ -No Was there de-escalation of care discussed even if they declined (Discuss DNR or withdrawal of care, Hospice)? DNR status @ -No What co-morbidities impacted this encounter? (DM, HTN, Smoking, COPD, CAD, Cancer, CVA, ARF, Chemo, Hep., AIDS, mental health diagnosis, sleep apnea, morbid obesity)? @ -None Was patient admitted / discharged? Hospital course, mention meds given and route, prescriptions, significant lab abnormalities, going to OR and other pertinent info. @ -Patient was discharged. Patient was seen and evaluated for left flank pain x 1 day. Patient has extensive history of kidney stones and states this feels similar. Patient was seen 2 days ago in the ER for left-sided kidney stone and had CT at that time which showed bilateral kidney stones. There are no red flag symptoms present today. Vital signs and physical examination is unremarkable. CT not performed due to patient had CT 1 day ago for kidney stones. Lab work revealed elevated hematocrit, possibly due to dehydration. Patient was given IV fluids and Toradol, patient reports symptoms completely resolved and states he would like to go home. Patient refused urine sample today. Discussed with patient symptoms are likely due to left sided kidney stone. Encouraged hydratio n. Strict return/alarm symptoms discussed with patient in detail and patient shows understanding and agrees to plan. Advised to follow-up with PCP regarding elevated hematocrit. Patient discharged in stable condition. Case discussed with Dr. Flores Undiagnosed new problem with uncertain prognosis? @ -No Drug Therapy requiring intensive monitoring for toxicity (Heparin, Nitro, Insulin, Cardizem)? @ -No Were any procedures done? @ -No Diagnosis/symptom? @ -Left nephrolithiasis Acute, or Chronic, or Acute on Chronic? @ -Acute Uncomplicated (without systemic symptoms) or Complicated (systemic symptoms)? @ -Default Side effects of treatment? @ -No Exacerbation, Progression, or Severe Exacerbation? @ -No Poses a threat to life or bodily function? How? (Chest pain, [place], [place], pneumonia, PE, COPD, DKA, ARF, appy, cholecystitis, CVA, Diverticulitis, Homicidal, Suicidal, threat to staff... and all critical care pts) @ -No - Lab Data Result diagrams: 04/14/24 19:26 04/14/24 19:26 Lab Results 04/14/24 04/14/24 04/14/24 Range/Units 19:26 19:26 19:26 WBC 5.0 (3.8-10.6) k/uL RBC 6.44 H (4.30-5.90) m/uL Hgb 18.9 H (13.0-17.5) gm/dL Hct 58.4 H* (39.0-53.0) % MCV 90.7 (80.0-100.0) fL MCH 29.4 (25.0-35.0) pg MCHC 32.4 (31.0-37.0) g/dL RDW 13.9 (11.5-15.5) % Plt Count 147 L (150-450) k/uL MPV 9.8 Neutrophils % 73 % Lymphocytes % 17 % Monocytes % 5 % Eosinophils % 3 % Basophils % 1 % Neutrophils # 3.6 (1.3-7.7) k/uL Lymphocytes # 0.8 L (1.0-4.8) k/uL Monocytes # 0.2 (0-1.0) k/uL Eosinophils # 0.1 (0-0.7) k/uL Basophils # 0.0 (0-0.2) k/uL Sodium 138 (137-145) mmol/L Potassium 3.8 (3.5-5.1) mmol/L Chloride 105 (98-107) mmol/L Carbon Dioxide 20 L (22-30) mmol/L Anion Gap 13 mmol/L BUN 11 (9-20) mg/dL Creatinine 1.27 H (0.66-1.25) mg/dL Est GFR (CKD-EPI)AfAm 82 (>60 ml/min/1.73 sqM) Est GFR (CKD-EPI)NonAf 71 (>60 ml/min/1.73 sqM) Glucose 145 H (74-99) mg/dL Plasma Lactic Acid Mook 4.0 H* (0.7-2.0) mmol/L Calcium 9.2 (8.4-10.2) mg/dL Total Bilirubin 0.9 (0.2-1.3) mg/dL AST 51 (17-59) U/L ALT 64 H (4-49) U/L Alkaline Phosphatase 72 (38-126) U/L Total Protein 7.6 (6.3-8.2) g/dL Albumin 4.4 (3.5-5.0) g/dL Lipase 103 (23-300) U/L Disposition Clinical Impression: Acute left flank pain, Nephrolithiasis Disposition: HOME SELF-CARE Condition: Stable Instructions (If sedation given, give patient instructions): Kidney Stones (ED) Additional Instructions: Please follow-up with PCP regarding elevated hematocrit. Please return to the Emergency Department if symptoms worsen or any other concerns. Is patient prescribed a controlled substance at d/c from ED?: No Referrals: None,Stated [Primary Care Provider] - 1-2 days Time of Disposition: 20:31
[2024-04-14] MEDS: KETOROLAC 15 MG/ML 1 ML VIAL IVP STA (19:30)
[2024-04-14] MEDS: SODIUM CHLORIDE 0.9% 1,000 ML IV STA (19:30)
[2024-04-14 19:42] LABS: Basophils % (A) 1 %; Eosinophils # (A) 0.1 k/uL (0-0.7); Eosinophils % (A) 3 %; HGB 18.9 gm/dL (13.0-17.5); Lymphocytes # (A) 0.8 k/uL (1.0-4.8); Lymphocytes % (A) 17 %; MCH 29.4 pg (25.0-35.0); MCHC 32.4 g/dL (31.0-37.0); MCV 90.7 fL (80.0-100.0); Mean Platelet Volume 9.8; Monocytes # (A) 0.2 k/uL (0-1.0); Monocytes % (A) 5 %; Neutrophils # (A) 3.6 k/uL (1.3-7.7); Neutrophils % (A) 73 %; Platelet Count 147 k/uL (150-450); RBC 6.44 m/uL (4.30-5.90); RDW 13.9 % (11.5-15.5)
[2024-04-14 19:44] LABS: ALT 64 U/L (4-49); AST 51 U/L (17-59); African American GFR (CKD) 82 (>60 ml/min/1.73 sqM); Albumin 4.4 g/dL (3.5-5.0); Alkaline Phosphatase 72 U/L (38-126); Anion Gap 13 mmol/L; Blood Urea Nitrogen 11 mg/dL (9-20); Calcium 9.2 mg/dL (8.4-10.2); Carbon Dioxide 20 mmol/L (22-30); Chloride 105 mmol/L (98-107); Glucose 145 mg/dL (74-99); Lipase 103 U/L (23-300); Non-African American GFR(CKD) 71 (>60 ml/min/1.73 sqM); Potassium 3.8 mmol/L (3.5-5.1); Sodium 138 mmol/L (137-145); Total Bilirubin 0.9 mg/dL (0.2-1.3); Total Protein 7.6 g/dL (6.3-8.2)
[2024-04-14 19:52] LABS: HCT 58.4 % (39.0-53.0)
[2024-04-14 21:22] VITALS: BP 121/78; PULSE 83
== END 2024-04-14 20:47 | disposition home or self-care (01) ==
LOC: EC 18:24
DX: N20.0 Calculus of kidney (principal)
CPT/HCPCS: 36415; 80053; 83605; 83690; 85025; 99284; 96374; 96361; J1885

== ENCOUNTER 2024-04-15 04:13 | Emergency (ER) | payer BC ==
[2024-04-15] MEDS: SODIUM CHLORIDE 0.9% 1,000 ML IV STA (05:32)
[2024-04-15] MEDS: KETOROLAC 15 MG/ML 1 ML VIAL IVP STA (05:33)
--- NOTE | 2024-04-15 05:42 | ED ---
General Adult HPI - General Source: patient Mode of arrival: ambulatory Limitations: no limitations <Lionel Perez - Last Filed: 04/15/24 07:06> <Cecil Cantu - Last Filed: 04/15/24 08:42> - General Chief complaint: Abdominal Pain Stated complaint: abd pain Time Seen by Provider: 04/15/24 04:57 - History of Present Illness Initial comments: Dictation was produced using [employer] dictation software. please excuse any grammatical, word or spelling errors. Chief Complaint: 39-year-old male presents with left-sided flank pain History of Present Illness: Patient 31-year-old male presents emergency depart ment left-sided flank pain. Patient was just here in our emergency department yesterday. Was diagnosed with kidney stones. Patient states that he was discharged from here earlier feeling no symptoms. States he was home for several hours and all of a sudden his pain recurred. He was told that he has multiple stones in the kidneys on both sides. Patient states that the pain is colicky in nature. Denies any fever, chills or night sweats. The ROS documented in this emergency department record has been reviewed and confirmed by me. Those systems with pertinent positive or negative responses have been documented in the HPI. All other systems are other negative and/or noncontributory. (Lionel Perez) - Related Data Home Medications Medication Instructions Recorded Confirmed Dextroamphetamine/Amphetamine 40 mg PO DAILY 03/16/19 03/16/19 [Adderall Xr] Multivitamins, Thera [Multivitamin 1 tab PO DAILY 03/16/19 03/16/19 (formulary)] Previous Rx's Medication Instructions Recorded Cephalexin [Keflex] 500 mg PO Q6HR #40 cap 04/21/19 HYDROcodone/APAP 5-325MG [[place] 1 tab PO Q6HR PRN #10 tab 04/21/19 5-325] HYDROcodone/APAP 5-325MG [[place] 1 tab PO Q6HR PRN 3 Days #12 tab 05/04/20 5-325] HYDROcodone/APAP 7.5-325MG [[place] 1 tab PO Q6HR PRN 3 Days #12 tab 04/13/24 7.5-325] Ondansetron Odt [Zofran Odt] 4 mg PO Q8HR PRN #20 tab 04/13/24 Tamsulosin [Flomax] 0.4 mg PO DAILY #10 cap 04/13/24 HYDROcodone/APAP 5-325MG [[place] 1 tab PO Q6HR PRN #12 tab 04/15/24 5-325] Ibuprofen [Motrin] 600 mg PO Q8HR PRN #24 tab 04/15/24 Tamsulosin [Flomax] 0.4 mg PO DAILY #7 cap 04/15/24 Allergies Allergy/AdvReac Type Severity Reaction Status Date / Time No Known Allergies Allergy Verified 04/15/24 04:33 Review of Systems ROS Other: All systems not noted in ROS Statement are negative. <Lionel Perez - Last Filed: 04/15/24 07:06> ROS Other: All systems not noted in ROS Statement are negative. <Cecil Cantu - Last Filed: 04/15/24 08:42> ROS Statement: Those systems with pertinent positive or pertinent negative responses have been documented in the HPI. Past Medical History Past Medical History: No Reported History Additional Past Medical History / Comment(s): kidney stones, History of Any Multi-Drug Resistant Organisms: None Reported Past Surgical History: Orthopedic Surgery Additional Past Surgical History / Comment(s): Vasectomy, lithotripsy with stents, Past Psychological History: No Psychological Hx Reported Smoking Status: Never smoker Past Alcohol Use History: Occasional Past Drug Use History: None Reported <Lionel Perez - Last Filed: 04/15/24 07:06> General Exam Limitations: no limitations <Lionel Perez - Last Filed: 04/15/24 07:06> - General Exam Comments Initial Comments: PHYSICAL EXAM: General Impression: Alert and oriented x3, mild acute distress secondary to pain HEENT: Normocephalic atraumatic, extra-ocular movements intact, pupils equal and reactive to light bilaterally, mucous membranes moist. Cardiovascular: Heart regular rate and rhythm Chest: Able to complete full sentences, no retractions, no tachypnea Abdomen: abdomen soft, non-tender, non-distended, no organomegaly Musculoskeletal: Pulses present and equal in all extremities, no peripheral edema Motor: no focal deficits noted Neurological: CN II-XII grossly intact, no focal motor or sensory deficits noted Skin: Intact with no visualized rashes Psych: Normal affect and mood (Lionel Perez) Course <Cecil Cantu - Last Filed: 04/15/24 08:42> Vital Signs 04/15/24 04/15/24 04:33 07:44 Temperature 98.2 F 98 F Pulse Rate 54 L 62 Respiratory 22 20 Rate Blood Pressure 142/100 136/84 O2 Sat by Pulse 98 Oximetry - Reevaluation(s) Reevaluation #1: 04/15/24 08:40 Patient feeling better, patient states he will get a ride. (Cecil Cantu) Medical Decision Making - Lab Data Result diagrams: 04/15/24 05:34 <Lionel Perez - Last Filed: 04/15/24 07:06> - Lab Data Result diagrams: 04/15/24 05:34 04/15/24 06:27 <Cecil Cantu - Last Filed: 04/15/24 08:42> - Medical Decision Making Was pt. sent in by a medical professional or institution (, PA, AIRCRAFT TIME CLERK, urgent care, hospital, or intermediate...) When possible be specific @ -No Did you speak to anyone other than the patient for history (EMS, parent, family, police, friend...)? What history was obtained from this source @ -No Did you review nursing and triage notes (agree or disagree)? Why? @ -I reviewed and agree with nursing and triage notes Were old charts reviewed (outside hosp., previous admission, EMS record, old EKG, old radiological studies, urgent care reports/EKG's, intermediate records)? Report findings @ -No old charts were reviewed Differential Diagnosis (chest pain, altered mental status, abdominal pain women, abdominal pain men, vaginal bleeding, musculoskeletal, weakness, fever, dyspnea, syncope, headache, dizziness, GI bleed, back pain, seizure, CVA, palpatations, mental health)? @ -Differential Abdominal Pain Men: Appendicitis, cholecystitis, diverticulosis, ischemic bowel, pancreatitis, hepatitis, UTI, gastroenteritis, AAA, incarcerated hernia, bowel obstruction, constipation, inflammatory bowel, hepatitis, peptic ulcer disease, splenic infarction, perforated viscus, testicular torsion, this is not meant to be an all-inclusive list EKG interpreted by me (3pts min.). @ -None done X-rays interpreted by me (1pt min.). @ -None done CT interpreted by me (1pt min.). @ -None done U/S interpreted by me (1pt. min.). @ -Pending What testing was considered but not performed or refused? (CT, X-rays, U/S, labs)? Why? @ -None What meds were considered but not given or refused? Why? @ -None Did you discuss the management of the patient with other professionals (professionals i.e. DrPaty, PA, AIRCRAFT TIME CLERK, lab, RT, psych nurse, marriage and family social worker, rn l and d, teacher, community service patrol officer, rifle case repairer)? Give summary @ -No Was smoking cessation discussed for >3mins.? @ -No Was critical care preformed (if so, how long)? @ -No Were there social determinants of health that impacted care today? How? (Homelessness, low income, unemployed, alcoholism, drug addiction, transportation, low edu. Level, literacy, decrease access to med. care, senior care, rehab)? @ -No Was there de-escalation of care discussed even if they declined (Discuss DNR or withdrawal of care, Hospice)? DNR status @ -No What co-morbidities impacted this encounter? (DM, HTN, Smoking, COPD, CAD, Cancer, CVA, ARF, Chemo, Hep., AIDS, mental health diagnosis, sleep apnea, morbid obesity)? @ -None Was patient admitted / discharged? Hospital course, mention meds given and route, prescriptions, significant lab abnormalities, going to OR and other pertinent info. @ -39-year-old male presents emergency department with what he describes as classic symptoms of his usual nephrolithiasis pain. Vital signs upon arrival are within acceptable limits. Laboratory evaluation obtained. Patient has stable polycythemia. Urinalysis shows 72 red blood cells. Pending ultrasound. Patient given IV fluids and analgesics. Signed out to Dr. Cantu at 7:00 AM Undiagnosed new problem with uncertain prognosis? @ -No Drug Therapy requiring intensive monitoring for toxicity (Heparin, Nitro, Insulin, Cardizem)? @ -No Were any procedures done? @ -No Diagnosis/symptom? Acute, or Chronic, or Acute on Chronic? Uncomplicated (without systemic symptoms) or Complicated (systemic symptoms)? @ -Nephrolithiasis Side effects of treatment? @ -No Exacerbation, Progression, or Severe Exacerbation? @ -No Poses a threat to life or bodily function? How? (Chest pain, [place], [place], pneumonia, PE, COPD, DKA, ARF, appy, cholecystitis, CVA, Diverticulitis, Homicidal, Suicidal, threat to staff... and all critical care pts) @ -yes (Lionel Perez) 39-year-old male with left flank pain, recent diagnosis of obstructing stone. He continues to have hematuria. Creatinine is mildly elevated. Patient's pain is controlled in the emergency department. He is given urology follow-up. Prescribed pain medication. (Cecil Cantu) - Lab Data Lab Results 04/15/24 04/15/24 04/15/24 Range/Units 05:34 06:21 06:27 WBC 8.2 (3.8-10.6) k/uL RBC 6.45 H (4.30-5.90) m/uL Hgb 18.5 H (13.0-17.5) gm/dL Hct 58.1 H* (39.0-53.0) % MCV 90.0 (80.0-100.0) fL MCH 28.7 (25.0-35.0) pg MCHC 31.9 (31.0-37.0) g/dL RDW 13.9 (11.5-15.5) % Plt Count 152 (150-450) k/uL MPV 9.6 Neutrophils % 75 % Lymphocytes % 15 % Monocytes % 6 % Eosinophils % 2 % Basophils % 0 % Neutrophils # 6.2 (1.3-7.7) k/uL Lymphocytes # 1.2 (1.0-4.8) k/uL Monocytes # 0.5 (0-1.0) k/uL Eosinophils # 0.2 (0-0.7) k/uL Basophils # 0.0 (0-0.2) k/uL Sodium 139 (137-145) mmol/L Potassium 4.8 (3.5-5.1) mmol/L Chloride 110 H (98-107) mmol/L Carbon Dioxide 22 (22-30) mmol/L Anion Gap 7 mmol/L BUN 11 (9-20) mg/dL Creatinine 1.42 H (0.66-1.25) mg/dL Est GFR (CKD-EPI)AfAm 72 (>60 ml/min/1.73 sqM) Est GFR (CKD-EPI)NonAf 63 (>60 ml/min/1.73 sqM) Glucose 102 H (74-99) mg/dL Calcium 8.0 L (8.4-10.2) mg/dL Urine Color Yellow Urine Appearance Clear (Clear) Urine pH 6.5 (5.0-8.0) Ur Specific [place] 1.027 (1.001-1.035) Urine Protein 1+ H (Negative) Urine Glucose (UA) Negative (Negative) Urine Ketones Trace H (Negative) Urine Blood Moderate H (Negative) Urine Nitrite Negative (Negative) Urine Bilirubin Negative (Negative) Urine Urobilinogen 2.0 (<2.0) mg/dL Ur Leukocyte Esterase Negative (Negative) Urine RBC 72 H (0-5) /hpf Urine WBC <1 (0-5) /hpf Urine Bacteria Rare H (None) /hpf Hyaline Casts 1 (0-2) /lpf Urine Mucus Occasional H (None) /hpf Disposition <Lionel Perez - Last Filed: 04/15/24 07:06> Is patient prescribed a controlled substance at d/c from ED?: No Time of Disposition: 08:40 <Cecil Cantu - Last Filed: 04/15/24 08:42> Clinical Impression: Kidney stone Disposition: HOME SELF-CARE Condition: Fair Instructions (If sedation given, give patient instructions): Kidney Stones (ED), Polycythemia Vera (DC) Prescriptions: Tamsulosin [Flomax] 0.4 mg PO DAILY #7 cap Ibuprofen [Motrin] 600 mg PO Q8HR PRN #24 tab PRN Reason: Pain HYDROcodone/APAP 5-325MG [[place] 5-325] 1 tab PO Q6HR PRN #12 tab PRN Reason: Pain Referrals: Wolfgang Lopez MD [STAFF PHYSICIAN] - 1-2 days
[2024-04-15 06:00] LABS: Basophils % (A) 0 %; Eosinophils # (A) 0.2 k/uL (0-0.7); Eosinophils % (A) 2 %; HGB 18.5 gm/dL (13.0-17.5); Lymphocytes # (A) 1.2 k/uL (1.0-4.8); Lymphocytes % (A) 15 %; MCH 28.7 pg (25.0-35.0); MCHC 31.9 g/dL (31.0-37.0); Mean Platelet Volume 9.6; Monocytes # (A) 0.5 k/uL (0-1.0); Monocytes % (A) 6 %; Neutrophils # (A) 6.2 k/uL (1.3-7.7); Neutrophils % (A) 75 %; Platelet Count 152 k/uL (150-450); RBC 6.45 m/uL (4.30-5.90); RDW 13.9 % (11.5-15.5); WBC 8.2 k/uL (3.8-10.6)
[2024-04-15 06:23] LABS: HCT 58.1 % (39.0-53.0)
[2024-04-15 06:41] LABS: Appearance,Urine Clear (Clear); Bacteria,Urine Rare /hpf; Bilirubin,Urine Negative (Negative); Blood,Urine Moderate (Negative); Color,Urine Yellow; Glucose,Urine (UA) Negative (Negative); Hyaline Casts,Urine 1 /lpf (0-2); Ketones,Urine Trace (Negative); Leukocyte Esterase,Urine Negative (Negative); Mucus,Urine Occasional /hpf; Nitrite,Urine Negative (Negative); PH, Urine 6.5 (5.0-8.0); Protein,Urine 1+ (Negative); RBC,Urine 72 /hpf (0-5); Specific Gravity,Urine 1.027 (1.001-1.035); WBC,Urine <1 /hpf (0-5)
[2024-04-15 06:53] LABS: African American GFR (CKD) 72 (>60 ml/min/1.73 sqM); Anion Gap 7 mmol/L; Blood Urea Nitrogen 11 mg/dL (9-20); Carbon Dioxide 22 mmol/L (22-30); Chloride 110 mmol/L (98-107); Glucose 102 mg/dL (74-99); Non-African American GFR(CKD) 63 (>60 ml/min/1.73 sqM); Sodium 139 mmol/L (137-145)
[2024-04-15] MEDS: MORPHINE SULFATE 4 MG/ML SYRINGE IV STA (07:22)
--- NOTE | 2024-04-15 07:46 | US ---
EXAMINATION TYPE: US kidneys/renal and bladder DATE OF EXAM: 04/15/2024 COMPARISON: NONE CLINICAL INDICATION: Male, 39 years old with history of left flank pain; known stones, passed one 3 d ays ago, pain increasing again on the left EXAM MEASUREMENTS: Right Kidney: 12.3 x 5.5 x 6.0 cm Left Kidney: 12.7 x 5.7 x 7.4 cm Right Kidney: No hydronephrosis or masses seen Left Kidney: 1.3 x 0.8cm mid pole stone seen, some mild prominence of the renal collecting system adj acent is present. Hydronephrosis of the renal pelvis and lower pole however is not evident. Bladder: wnl There is no evidence for hydronephrosis at this point in time. No nephrolithiasis is seen. No miriam s are identified. The urinary bladder is anechoic. Bilateral ureteral jets are seen. IMPRESSION: Mid to upper pole left renal calcification with mild local prominence of the collecting system.
[2024-04-15 07:55] LABS: Potassium 4.8 mmol/L (3.5-5.1)
[2024-04-15] MEDS: HYDROmorphone 1 MG/ML 1 ML SYRINGE IVP STA (08:17)
[2024-04-15 09:09] VITALS: BP 134/84; PULSE 68; RESP 18; TEMP 98.1
== END 2024-04-15 08:59 | disposition home or self-care (01) ==
LOC: EC 04:13
DX: N13.2 Hydronephrosis with renal and ureteral calculous obstruction (principal)
CPT/HCPCS: 36415; 80048; 85025; 81001; 76770; 99284; 96374; 96375 ×2; 96361; J2270; J1170; J1885

== ENCOUNTER 2024-07-14 18:20 | Inpatient (IN) | payer BC ==
[~2024-07-14 18:20] MED LIST: IPRATROPIUM-ALBUTEROL 3 ML NEB ONE
[2024-07-14] MEDS ORDERED: FUROSEMIDE 10 MG/ML 4 ML VIAL ONE (19:01)
[2024-07-15] MEDS ORDERED: METOPROLOL TARTRATE 25 MG TAB ONE ×2 (13:12→20:16)
[2024-07-16] MEDS ORDERED: METOPROLOL TARTRATE 25 MG TAB ONE ×3 (03:26→19:52)
[2024-07-16] MEDS ORDERED: HEPARIN SOD,PORK IN 0.45% NACL 250 ML IV ONE ×2 (04:00→22:13)
[2024-07-16] MEDS ORDERED: SACUBITRIL/VALSARTAN 24 MG-26 MG TABLET PO ONE ×2 (12:47→20:15)
[2024-07-16] MEDS ORDERED: FUROSEMIDE 10 MG/ML 2 ML VIAL ONE (13:57)
[2024-07-16] MEDS ORDERED: FUROSEMIDE 10 MG/ML 4 ML VIAL ONE (19:52)
[2024-07-16] MEDS ORDERED: HEPARIN SODIUM 1,000 UN/ML (10ML VL) ONE (20:31)
[2024-07-16] MEDS ORDERED: AMIODARONE IV ONE (23:59)
[2024-07-16] MEDS ORDERED: DILTIAZEM 125 MG/25 ML VIAL IV ONE (23:59)
[2024-07-16] MEDS ORDERED: DEXTROSE 5% IN WATER 100 ML BAG IV ONE (23:59)
[2024-07-16] MEDS ORDERED: DEXTROSE IV ONE (23:59)
[2024-07-16] MEDS ORDERED: DEXTROSE 5% IN WATER 250 ML BAG ONE (23:59)
[2024-07-16] MEDS ORDERED: AMIODARONE 50 MG/ML 9 ML VIAL IV ONE (23:59)
[2024-07-16] MEDS ORDERED: SODIUM CHLORIDE 0.9% 100 ML BAG IV ONE (23:59)
[2024-07-16] MEDS ORDERED: AMIODARONE 50 MG/ML 3 ML VIAL IV ONE (23:59)
[2024-07-17] MEDS ORDERED: FUROSEMIDE 10 MG/ML 4 ML VIAL ONE (06:10)
[2024-07-17] MEDS ORDERED: SACUBITRIL/VALSARTAN 24 MG-26 MG TABLET PO ONE ×2 (07:54→19:38)
[2024-07-17] MEDS ORDERED: METOPROLOL TARTRATE 25 MG TAB ONE ×2 (07:54→11:20)
[2024-07-17] MEDS ORDERED: FUROSEMIDE 40 MG TAB ONE ×2 (11:20→19:36)
[2024-07-17] MEDS ORDERED: FAMOTIDINE 20 MG TAB ONE (11:20)
[2024-07-17] MEDS ORDERED: APIXABAN 5 MG TAB ONE ×2 (11:21→19:37)
[2024-07-17] MEDS ORDERED: DEXTROSE 5% IN WATER 250 ML BAG ONE (11:35)
[2024-07-17] MEDS ORDERED: AMIODARONE 50 MG/ML 9 ML VIAL IV ONE (11:35)
[2024-07-17] MEDS ORDERED: METOPROLOL TARTRATE 50 MG TAB ONE (19:36)
[2024-07-17] MEDS ORDERED: AMIODARONE 200 MG TAB ONE (19:36)
[2024-07-18] MEDS ORDERED: FAMOTIDINE 20 MG TAB ONE (08:45)
[2024-07-18] MEDS ORDERED: FUROSEMIDE 40 MG TAB ONE ×2 (08:46→19:46)
[2024-07-18] MEDS ORDERED: AMIODARONE 200 MG TAB ONE ×2 (08:46→19:46)
[2024-07-18] MEDS ORDERED: METOPROLOL TARTRATE 50 MG TAB ONE ×2 (08:46→19:46)
[2024-07-18] MEDS ORDERED: APIXABAN 5 MG TAB ONE ×2 (08:46→19:46)
[2024-07-18] MEDS ORDERED: SACUBITRIL/VALSARTAN 24 MG-26 MG TABLET PO ONE ×2 (08:46→19:47)
[2024-07-19] MEDS ORDERED: METOPROLOL TARTRATE 50 MG TAB ONE ×2 (08:24→20:30)
[2024-07-19] MEDS ORDERED: FAMOTIDINE 20 MG TAB ONE (08:24)
[2024-07-19] MEDS ORDERED: APIXABAN 5 MG TAB ONE ×2 (08:25→20:31)
[2024-07-19] MEDS ORDERED: SACUBITRIL/VALSARTAN 24 MG-26 MG TABLET PO ONE ×2 (08:25→20:30)
[2024-07-19] MEDS ORDERED: FUROSEMIDE 40 MG TAB ONE ×2 (08:25→20:31)
[2024-07-19] MEDS ORDERED: AMIODARONE 200 MG TAB ONE ×2 (08:25→20:31)
[2024-07-20] MEDS ORDERED: FAMOTIDINE 20 MG TAB ONE (08:46)
[2024-07-20] MEDS ORDERED: APIXABAN 5 MG TAB ONE (08:46)
[2024-07-20] MEDS ORDERED: FUROSEMIDE 40 MG TAB ONE (08:46)
[2024-07-20] MEDS ORDERED: SACUBITRIL/VALSARTAN 24 MG-26 MG TABLET PO ONE (08:46)
[2024-07-20] MEDS ORDERED: AMIODARONE 200 MG TAB ONE (08:46)
[2024-07-20] MEDS ORDERED: METOPROLOL TARTRATE 50 MG TAB ONE (08:46)
--- NOTE | 2024-08-12 15:03 | CA ---
Transthoracic Echo Report Name: Larry Sanchez Age: 39 Gender: M : 1985 Exam Date: 07/15/2024 13:33 Exam Location: [facility] Ht (in): 68 Wt (lb): 260 Ordering Physician: Attending/Referring Phys: Cutter Down Brenda Benavides RDCS Procedure CPT: Indications: Cardiac Hx: Technical Quality: Fair Contrast 1: Definity Total Dose (mL): 2 Contrast 2: Total Dose (mL): MEASUREMENTS (Male / Female) Normal Values 2D ECHO LV Diastolic Diameter PLAX 6.4 cm 4.2 - 5.9 / 3.9 - 5.3 cm LV Systolic Diameter PLAX 5.6 cm IVS Diastolic Thickness 0.9 cm 0.6 - 1.0 / 0.6 - 0.9 cm LVPW Diastolic Thickness 1.1 cm 0.6 - 1.0 / 0.6 - 0.9 cm LV Relative Wall Thickness 0.3 RV Internal Dim ED PLAX 2.6 cm LA Systolic Diameter LX 3.8 cm 3.0 - 4.0 / 2.7 - 3.8 cm LV Diastolic Volume MOD 2C 159.3 cm??? LV Systolic Volume MOD 2C 142.9 cm??? LV Ejection Fraction MOD 2C 10.3 % LV Cardiac Index MOD 2C 678.4 cm???/min???m??? LV Diastolic Length 2C 9.1 cm LV Systolic Length 2C 9.0 cm M-MODE Aortic Root Diameter MM 3.2 cm LA Systolic Diameter MM 4.0 cm LA Ao Ratio MM 1.2 AV Cusp Separation MM 2.1 cm DOPPLER Mitral E Point Velocity 50.7 cm/s Mitral A Point Velocity 49.4 cm/s Mitral E to A Ratio 1.0 MV Deceleration Time 261.1 ms MV E' Velocity 6.9 cm/s Mitral E to MV E' Ratio 7.4 TR Peak Velocity 178.5 cm/s TR Peak Gradient 12.7 mmHg Right Ventricular Systolic Press 22.7 mmHg FINDINGS Left Ventricle Left ventricular ejection fraction is estimated at 20-25 %. Mildly increased left ventricular diastolic diameter. Severely reduced global left ventricular systolic function. Left ventricular wall thickness normal. Right Ventricle Mild right ventricular dilatation. Right ventricular systolic pressure within normal limits. Right Atrium Mild right atrial dilatation. Left Atrium Mild left atrial dilatation. Mitral Valve Structurally normal mitral valve. Mild mitral regurgitation. No mitral stenosis. Aortic Valve Trileaflet aortic valve. No aortic stenosis. No aortic regurgitation. Tricuspid Valve Structurally normal tricuspid valve. Mild tricuspid regurgitation. No tricuspid stenosis. Pulmonic Valve Structurally normal pulmonic valve. Trace pulmonic regurgitation. No pulmonic stenosis. Pericardium No pericardial or pleural effusion. Aorta Normal size aortic root and proximal ascending aorta. CONCLUSIONS 1. Severe global hypokinesis of the left ventricle with dilated left ventricle 2. Mild mitral and tricuspid regurgitation Previewed by: Dr. Livan Carlson MD (Electronically Signed) Final Date: 16 July 2024 09:26
--- NOTE | 2024-08-13 18:42 | US ---
Patient: Larry Sanchez Ordering Physician: Unknown, Unknown ID: [id number] Phone, Pager: Phone: N/A Pager: N/A : 1985 Age/Gender: 39Y, N/A Primary Location: N/A Procedure: US abdomen limited Brenden dy Date: 07/15/2024 11:59:00 AM EXAMINATION TYPE: US abdomen limited DATE OF EXAM: 07/16/2024 COMPARISON: NONE CLINICAL INDICATION: Increased LFTs TECHNIQUE: Multiple sonographic images of the right upper quadrant are obtained. Panc- wnl, tail obscured by overlying bowel gas Liver- Enlarged GB- wnl CBD- wnl Right Kidney- No evidence of hydro, possible calculi mid pole IMPRESSION: As above
--- NOTE | 2024-08-14 11:12 | US ---
EXAMINATION TYPE: US venous doppler duplex LE BI DATE OF EXAM: 07/18/2024 1:12 PM COMPARISON: NONE CLINICAL INDICATION: Unknown, old with history of ; SIDE PERFORMED: TECHNIQUE: The lower extremity deep venous system is examined utilizing real time linear array sonog dayna with graded compression, doppler sonography and color-flow sonography. VESSELS IMAGED: Common Femoral Vein Deep Femoral Vein Greater Saphenous Vein * Femoral Vein Popliteal Vein Small Saphenous Vein * Proximal Calf Veins (* superficial vessels) No evidence for lower extremity DVT. IMPRESSION: Grayscale, color doppler, spectral doppler imaging performed of the deep veins of the lo wer extremities. There is normal flow, compressibility, vascular waveforms.
--- NOTE | 2024-08-14 13:53 | NM ---
Patient: Larry Sanchez Ordering Physician: Unknown, Unknown ID: [id number] Phone, Pager: Phone: N/A Pager: N/A : 1985 Age/Gender: 39Y, M Primary Location: N/A Procedure: NM LUNG SCAN PERF/VENT AERO [id number] Study Date: 07/18/2024 3:25:00 PM EXAMINATION TYPE: NM pul vent and perfuse DATE OF EXAM: 07/18/2024 CLINICAL INDICATION: Shortness of breath COMPARISON: NONE TECHNIQUE: Utilizing inhalation of 5.1 mCi Tc 99m DTPA aerosol and intravenous injection of 39.7 mCi of Tc 99m MAA, ventilation and perfusion images are acquired post injection in multiple projections. FINDINGS: Normal radiotracer distribution is noted in the lungs. There is no evidence of mismatched defects. IMPRESSION: Very low probability for pulmonary embolism.
--- NOTE | 2024-08-16 10:29 | XR ---
Patient Larry Sanchez ID [id number] DOB1985 [id number] Order # EXAMINATION TYPE: XR chest 2V DATE OF EXAM: 07/14/2024 COMPARISON: No comparison available on downtime PACS. INDICATION: Dyspnea chest pain TECHNIQUE: Frontal and lateral views of the chest are obtained. FINDINGS: The heart size is normal. The pulmonary vasculature is normal. Diffuse increased lung markings are present. Correlate for pulmonary edema. Kathryn B lines along the r ight margin. IMPRESSION: 1. Findings suggestive for pulmonary edema and CHF.
== END 2024-07-20 12:10 | disposition home or self-care (01) | DRG 308 ==
LOC: 3SCARD 18:20
PROVIDERS: ADMIT Hospitalist; ATTEND Hospitalist
DX: I48.91 Unspecified atrial fibrillation (principal); I50.21 Acute systolic (congestive) heart failure; N17.9 Acute kidney failure, unspecified; I42.9 Cardiomyopathy, unspecified; J45.909 Unspecified asthma, uncomplicated; R16.0 Hepatomegaly, not elsewhere classified
CPT/HCPCS: 71046; 76705; 78582; 93005; 93306; 93970; 94640; 99285

== ENCOUNTER → 2024-08-19 | Outpatient (CLI) | payer BC ==
[2024-08-19 21:28] LABS: Basophils # (A) 0.02 X 10*3/uL (0.00-0.10); Basophils % (A) 0.3 %; Eosinophils # (A) 0 X 10*3/uL (0.04-0.35); Eosinophils % (A) 0 %; HCT 54.7 % (39.6-50.0); HGB 17.9 g/dL (13.0-17.0); Immature Grans, Automated 0 %; Lymphocytes # (A) 1.28 X 10*3/uL (0.90-5.00); Lymphocytes % (A) 21.7 %; MCH 28.2 pg (27.0-32.0); MCHC 32.7 g/dL (32.0-37.0); MCV 86.3 FL (80.0-97.0); Mean Platelet Volume 12.6 FL (9.5-12.2); Monocytes # (A) 0.51 X 10*3/uL (0.20-1.00); Monocytes % (A) 8.6 %; NRBC Per 100 WBC 0 X 10*3/uL (0.00-0.01); Neutrophils # (A) 4.09 X 10*3/uL (1.80-7.70); Neutrophils % (A) 69.4 %; Platelet Count 161 X 10*3/uL (140-440); RBC 6.34 X 10*6/uL (4.40-5.60)
[2024-08-19 21:36] LABS: Blood Urea Nitrogen 19.6 mg/dL (9.0-27.0); Carbon Dioxide 26.1 mmol/L (21.6-31.8); Chloride 102 mmol/L (96-109); Potassium 4.5 mmol/L (3.5-5.5); Sodium 142 mmol/L (135-145)
== END | disposition home or self-care (01) ==
LOC: LABPAT 15:59
PROVIDERS: ATTEND Internal Medicine Interventional Cardiology
DX: Z01.812 Encounter for preprocedural laboratory examination (principal); I42.0 Dilated cardiomyopathy
CPT/HCPCS: 80051; 82565; 84520; 85025

== ENCOUNTER 2024-08-27 06:08 | Day surgery (SDC) | payer BC ==
[2024-08-21 11:02] VITALS: BMI 38.0
[2024-08-27 06:49] VITALS: RESP 16; TEMP 97.7
[2024-08-27] MEDS: SODIUM CHLORIDE 0.9% 1,000 ML IV SCH (06:50)
[2024-08-27] MEDS: SODIUM CHLORIDE 0.9% 1,000 ML IV ONE (06:50)
[2024-08-27] MEDS: SODIUM CHLORIDE 0.9% 1,000 ML in EMPTY BAG 1 BAG IV SCH (06:50)
[2024-08-27] MEDS ORDERED: ALPRAZolam 0.5 MG TAB PO PRN (06:55)
[2024-08-27] MEDS ORDERED: ALPRAZolam 0.25 MG TAB PO PRN (06:55)
[2024-08-27] MEDS ORDERED: NITROGLYCERIN SL TABS 0.4 MG TAB SUBLINGUAL PRN (06:55)
[2024-08-27] MEDS ORDERED: ceFAZolin 1 GM in SODIUM CHLORIDE 0.9% IRRIG BTL 250 ML IRRIGATION PRN (07:00)
[2024-08-27] MEDS: ASPIRIN 325 MG TAB PO STA (07:13)
[2024-08-27] MEDS: HEPARIN SODIUM,PORCINE 10,000 UNIT in SODIUM CHLORIDE 0.9% 1,000 ML IRRIGATION ONE (07:22)
[2024-08-27] MEDS: HEPARIN SODIUM,PORCINE (1 ML) 2,500 UNIT in SODIUM CHLORIDE 0.9% 250 ML IRRIGATION ONE (07:23)
[2024-08-27] MEDS: MIDAZOLAM 2 MG/2 ML VIAL IVP ONE (07:31)
[2024-08-27] MEDS: LIDOCAINE 1% INJ 10MG/ML (20 ML MDV) SQ ONE (07:33)
[2024-08-27] MEDS: VERAPAMIL SYRINGE (5 MG/10 ML) INTRAARTER ONE (07:40)
[2024-08-27] MEDS: HEPARIN SODIUM 1,000 UN/ML (10ML VL) IVP ONE (07:41)
[2024-08-27] MEDS: IOPAMIDOL-370 100ML BTL INJ ONE (07:59)
[2024-08-27] MEDS ORDERED: SODIUM CHLORIDE 0.9% 1,000 ML IV SCH (08:15)
--- NOTE | 2024-08-27 08:50 | CC ---
CARDIAC CATHETERIZATION REPORT PROCEDURES PERFORMED: Left heart catheterization and coronary angiography. PERFORMED BY: Dr. Jones Wilson. ANESTHESIA: Moderate conscious sedation time was 29 minutes. The patient was administered Versed. Oxygen saturation, hemodynamics, and EKG were monitored closely. CLINICAL INFORMATION: Mr. Larry Sanchez is a 39-year-old obese gentleman with a history of recent diagnosis of cardiomyopathy. In about mid June, he presented to the hospital in heart failure, and while in the hospital, developed atrial fibrillation, which was paroxysmal in nature. He had an ejection fraction of 20% to 25%. After optimizing his heart failure management, the patient continued to remain in sinus rhythm. He was advised coronary angiography to rule out any ischemic heart disease. The risks, benefits, and options were explained to the patient and , and he was brought in for the procedure electively. He also has had testosterone usage and a high hemoglobin level. He was seen by transport aircrewman. He may have underlying sleep apnea as well. He was advised coronary angiography and brought in for the procedure electively. DESCRIPTION OF PROCEDURE: Under strict aseptic precautions and local anesthesia, a 6-Yakut introducer was placed in the right radial artery using ultrasound and Micropuncture needle technique. The JL3.5 and JR4 catheters were used to perform coronary angiography, and the same right catheter was used to check LV pressures, but LV-gram was not performed. The sheath was taken out and TR band applied as per protocol with saturation in the fingers of the right hand of about 97%. The patient tolerated the procedure well without complications. He was sent to the [facility]. Details were discussed with the patient, his , and mother. He has no significant obstructive CAD and we are dealing with nonischemic cardiomyopathy. CARDIAC CATHETERIZATION FINDINGS: The left ventricular end-diastolic pressure was 5 to 6 mmHg without any gradient across the aortic valve. CORONARY ANGIOGRAPHY FINDINGS: Right coronary artery: Large dominant vessel. No significant disease. Distally bifurcates into PDA and PLV. Minor irregularities. No significant disease. Left main coronary artery: Long patent vessel. No significant disease. Bifurcates into LAD and circumflex. Left anterior descending coronary artery: Good caliber vessel, gives off some septal and diagonal branches, has minor irregularities, runs all the way to the apex. No significant disease. Left posterior circumflex coronary artery: Nondominant vessel of good caliber and distribution, gives off a large obtuse marginal and a groove branch and distal posterolateral branch. Minor irregularities. No significant disease. FINAL IMPRESSION: This patient has a right-dominant system, normal filling pressures, minor irregularities, no significant CAD. He has a nonischemic cardiomyopathy. RECOMMENDATIONS: I am recommending that we decrease the Lasix from 40 mg in the morning and 20 in the afternoon to 20 mg b.i.d., amiodarone will be 200 mg every other day, and metoprolol tartrate will be reduced from 50 mg b.i.d. to 25 mg b.i.d. I will see him in the office in 1 week. Details were discussed with the patient as well as his and mother. He will be discharged later on today. I will see him in the office in 1 week. MMMITCHELL / ANAN: [id number] /
[2024-08-27 14:12] VITALS: BP 121/59; PULSE 58
--- NOTE | 2024-08-27 14:34 | P.SLEEP ---
History of Present Illness H&P Date: 08/27/24 This is a 39-year-old male patient was being seen in the hospital for obstructive sleep apnea. The patient underwent a cardiac catheterization today as part of his workup for CHF. The cardiac catheterization came back negative. Following his cardiac cath, it was noted by the nursing staff that the patient was having prolonged apneas, oxygen desaturation along with loud snoring. Based on that, it was advised for this patient to be seen by his sleep specialist. The patient currently has cardiomyopathy with an ejection fraction of 25%. He has also developed atrial fibrillation during earlier hospitalization and is currently back into normal sinus rhythm. He is currently doing well. No chest pain. No shortness of breath. Admits to snore. Sleep is fragmented. 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 Denies having any major hypersomnia or sleepiness during the day. Denies falling asleep while driving. No history of substance abuse. He drinks alcohol essentially [place] a total of 10 drinks over the weekend. He denies drinking alcohol during the weekdays. No sleep paralysis. No hallucinations. No cataplexy. No morning headaches. No history of any following sleep while driving. No history of any motor vehicle accidents because of feeling drowsy or sleepy. No nocturnal heartburn or chest pain. No edema in lower extremities. Shortness of breath is improved. The patient accordingly will be tested further regarding the possibility of obstructive sleep apnea. Review of Systems Constitutional: Reports daytime sleepiness, Reports fatigue, Reports weight gain Eyes: denies as per HPI, denies blurred vision, denies bulging eye, denies decreased vision, denies diplopia, denies discharge, denies dry eye, denies irritation, denies itching, denies pain, denies photophobia, denies loss of peripheral vision, denies loss of vision, denies tunnel vision/blind spots Ears: deny: decreased hearing, ear discharge, earache, tinnitus Ears, nose, mouth and throat: Reports as per HPI Breasts: absent: as per HPI, gynecomastia Cardiovascular: Reports decreased exercise tolerance, Reports dyspnea on exertion, Reports irregular heart beat Respiratory: Reports dyspnea, Reports snoring Gastrointestinal: Reports as per HPI Genitourinary: Reports as per HPI Musculoskeletal: Reports as per HPI Musculoskeletal: absent: ankle pain, ankle stiffness, ankle swelling, as per HPI, elbow pain, elbow stiffness, elbow swelling, foot pain, foot stiffness, foot swelling, hand pain, hand stiffness, hand swelling, hip pain, hip stiffness, hip swelling, knee pain, knee stiffness, knee swelling, shoulder pain, shoulder stiffness, shoulder swelling, wrist pain, wrist stiffness, wrist swelling Integumentary: Reports as per HPI Neurological: Reports as per HPI Psychiatric: Reports as per HPI Endocrine: Reports as per HPI Hematologic/Lymphatic: Reports as per HPI Allergic/Immunologic: Reports as per HPI Past Medical History Past Medical History: Atrial Fibrillation, Heart Failure Additional Past Medical History / Comment(s): seen in ER & admitted [facility] Jun 2024 for SOB,CHF,Pulmonary edema, cough, "was told heart isn't pumping correctly", hx kidney stones, covid infection 2020 History of Any Multi-Drug Resistant Organisms: None Reported Past Surgical History: Orthopedic Surgery Additional Past Surgical History / Comment(s): Vasectomy, lithotripsy with stents Past Anesthesia/Blood Transfusion Reactions: No Reported Reaction Additional Past Anesthesia/Blood Transfusion Reaction / Comment(s): no hx blood transfusion Smoking Status: Never smoker - Past Family History Mother Family Medical History: No Reported History Father Family Medical History: AFIB Additional Family Medical History / Comment(s): "has blood clot in heart" Medications and Allergies Home Medications Medication Instructions Recorded Confirmed Type Furosemide [Lasix] 20 mg PO 1500 08/21/24 08/27/24 History Potassium Chloride ER [K-Dur 10] 10 meq PO DAILY 08/21/24 08/27/24 History Sacubitril/Valsartan [Entresto 24 1 each PO BID 08/21/24 08/27/24 History mg-26 mg Tablet] Amiodarone [Cordarone] 200 mg PO DAILY #1 tab 08/27/24 Rx Apixaban [Eliquis] 5 mg PO BID #0 08/27/24 08/27/24 Rx Furosemide [Lasix] 20 mg PO BID #0 08/27/24 08/27/24 Rx Metoprolol Tartrate [Lopressor] 25 mg PO BID #0 08/27/24 08/27/24 Rx Nitroglycerin Sl Tabs [Nitrostat] 0.4 mg SUBLINGUAL Q5M PRN tab 08/27/24 Rx Allergies Allergy/AdvReac Type Severity Reaction Status Date / Time No Known Allergies Allergy Verified 08/21/24 10:45 Physical Exam Vitals: Vital Signs Temp Pulse Pulse Resp BP BP Pulse Ox 08/27/24 13:45 58 L 16 121/59 08/27/24 12:11 54 L 16 116/67 92 L 08/27/24 11:11 48 L 16 122/76 94 L 08/27/24 10:11 50 L 16 118/72 92 L 08/27/24 09:41 48 L 16 117/73 94 L 08/27/24 09:11 48 L 16 120/72 93 L 08/27/24 08:56 50 L 16 122/76 93 L 08/27/24 08:41 60 16 128/68 95 08/27/24 08:26 61 16 119/66 94 L 08/27/24 08:12 55 L 16 116/75 91 L 08/27/24 06:47 97.7 F 56 L 16 115/76 110/71 94 L Intake and Output 08/26/24 08/27/24 08/27/24 22:59 06:59 14:59 Intake Total 300 1350 Output Total 1 Balance 300 1349 Intake: IV 300 700 Oral 650 Output: Urine 1 Other: Weight 113.9 kg The patient has a blood pressure of 120/62. Weight is 253. Body mass index is 38.5. Pulse is 56. Respirations 16. Currently is on room air oxygen. The patient appeared well nourished and normally developed. Vital signs as documented. Head exam is unremarkable. No scleral icterus or corneal arcus noted. Neck is without jugular venous distension, thyromegaly, or carotid bruits. Carotid upstrokes are brisk bilaterally. The patient has a Mallampati class IV with significant crowding of the posterior oropharynx. Lungs are clear to auscultation and percussion. Cardiac exam reveals the PMI to be normally sized and situated. Rhythm is regular. First and second heart sounds normal. No murmurs, rubs or gallops. Abdominal exam reveals normal bowel sounds, no masses, no organomegaly and no aortic enlargement. Extremities are nonedematous and both femoral and pedal pulses are normal. Examination of the skin revealed no evidence of significant rashes, suspicious appearing nevi or other concerning lesions. Neurologically, the patient is awake and alert and the patient does not have any focal neurological deficit. Cranial nerves are essentially intact. Assessment and Plan Plan: Loud snoring along with sleep fragmentation creased fatigue and sleepiness. Consider possibility of obstructive sleep apnea CHF with nonischemic cardiomyopathy with impaired ejection fraction of 20 to 25%. Proximated fibrillation current rhythm is sinus Alcoholism/excessive alcohol use Shortness of breath, improved Obesity with a BMI of 38.5 Low testosterone, the patient has been receiving testosterone replacement therapy on outpatient basis Plan The patient will need further investigation to rule out underlying sleep breathing disorder. Obviously, with his underlying cardiomyopathy, it would be favorable to do an in lab polysomnography to rule out obstructive sleep apnea/central sleep apnea. Meanwhile, we will optimize his CHF. Encourage weight loss. Maintain regular sleep schedule and good sleep hygiene measures. Will continue to follow make further recommendations based on the results of the sleep study. Sleep Note - Sleep Note Sleep Note: Temperature: 97.7 F Pulse Rate: 58 Respiratory Rate: 16 Blood Pressure: 121/59 SpO2: 92 Height: 5 ft 8 in Weight: 113.9 kg BMI: 38.0 Neck Circumference:
== END 2024-08-27 13:55 | disposition home or self-care (01) ==
LOC: CATHCVL 06:08
PROVIDERS: ATTEND Internal Medicine Interventional Cardiology
DX: I42.0 Dilated cardiomyopathy
CPT/HCPCS: 93458

== ENCOUNTER → 2024-08-30 | Outpatient (CLI) | payer BC ==
[2024-08-30 20:22] LABS: HCT 53.8 % (39.6-50.0); HGB 17.9 g/dL (13.0-17.0); MCH 28.7 pg (27.0-32.0); MCHC 33.3 g/dL (32.0-37.0); MCV 86.4 FL (80.0-97.0); Mean Platelet Volume 12.4 FL (9.5-12.2); NRBC Per 100 WBC 0 X 10*3/uL (0.00-0.01); Platelet Count 161 X 10*3/uL (140-440); RBC 6.23 X 10*6/uL (4.40-5.60); RDW 14.4 % (11.5-14.5); WBC 4.84 X 10*3/uL (4.50-10.00)
[2024-08-30 21:01] LABS: BUN/Creat Ratio 13.58 Ratio (12.00-20.00); Blood Urea Nitrogen 16.3 mg/dL (9.0-27.0); Carbon Dioxide 23.2 mmol/L (21.6-31.8); Chloride 104 mmol/L (96-109); Glucose 105 mg/dL (70-110); Phosphorus 4.3 mg/dL (2.4-5.1); Potassium 4.2 mmol/L (3.5-5.5); Sodium 140 mmol/L (135-145); Uric Acid 7.4 mg/dL (3.7-8.7)
[2024-08-30 21:02] LABS: ALT 49 U/L (10-49); AST 27 U/L (14-35); Albumin 4.6 g/dL (3.8-4.9); Albumin/Globulin Ratio 1.77 Ratio (1.60-3.17); Alkaline Phosphatase 78 U/L (41-126); Calcium 9.3 mg/dL (8.7-10.3); Globulin 2.6 g/dL (1.6-3.3); Total Bilirubin 0.6 mg/dL (0.3-1.2); Total Protein 7.2 g/dL (6.2-8.2)
== END | disposition home or self-care (01) ==
LOC: LABWHC1 13:40
PROVIDERS: ATTEND Internal Medicine Nephrology
DX: N17.9 Acute kidney failure, unspecified (principal)
CPT/HCPCS: 36415; 80053; 82306; 83735; 83970; 84100; 84550; 85027

== ENCOUNTER → 2024-09-17 | Outpatient (CLI) | payer BC ==
--- NOTE | 2024-09-26 20:40 | P.PCN ---
Date of Procedure: 09/17/24 Operative Findings: Home sleep study This study This is a 39-year-old male patient was being seen in the hospital for obstructive sleep apnea. The patient underwent a cardiac catheterization today as part of his workup for CHF. The cardiac catheterization came back negative. Following his cardiac cath, it was noted by the nursing staff that the patient was having prolonged apneas, oxygen desaturation along with loud snoring. Based on that, it was advised for this patient to be seen by his sleep specialist. The patient currently has cardiomyopathy with an ejection fraction of 25%. He has also developed atrial fibrillation during earlier hospitalization and is currently back into normal sinus rhythm. He is currently doing well. No chest pain. No shortness of breath. Admits to snore. Sleep is fragmented. 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 Denies having any major hypersomnia or sleepiness during the day. Denies falling asleep while driving. No history of substance abuse. He drinks alcohol essentially [place] a total of 10 drinks over the weekend. He denies drinking alcohol during the weekdays. No sleep paralysis. No hallucinations. No cataplexy. No morning headaches. No history of any following sleep while driving. No history of any motor vehicle accidents because of feeling drowsy or sleepy. No nocturnal heartburn or chest pain. No edema in lower extremities. Shortness of breath is improved. The patient accordingly will be tested further regarding the possibility of obstructive sleep apnea. Physical findings Body mass index of 38.6 Technical description The [employer] system was used to complete his home sleep study. This is a type III sleep study evaluation. Total recording duration was 9 hours and 57 minutes. This 10:24 PM and ended at 8:21 AM. There was a total of 9 hours and 46 minutes of flow evaluation and 8 hours and 10 minutes study was started that minutes of oxygen saturation evaluation. As such, this was an adequate sleep study. Results Respiratory evaluation showed a total of 186 obstructive apneas and 104 obstructive hypopneas. The resulting apnea-hypopnea index is 29.6. Disease was worsened in supine body position with an AHI of 47.4 while being in the supine body position. Oxygenation analysis This patient spent approximate 28 minutes of sleep time below pulse ox of 89%. Average pulse ox was not 92%. Baseline pulse ox was 96% while awake. Pulse ox recorded during the sleep study was 79%. Cardiac summary Average heart rate was 59 with a minimum heart rate of 40 and a maximum heart rate of 129 Assessment Obstructive sleep apnea, moderate to severe with an AHI of 29.6, worse in the supine body position. Loud snoring along with sleep fragmentation creased fatigue and sleepiness, secondary to obstructive sleep apnea CHF with nonischemic cardiomyopathy with impaired ejection fraction of 20 to 25% Paroxysmal atrial fibrillation current rhythm is sinus Alcoholism/excessive alcohol use Shortness of breath, improved Obesity with a BMI of 38.5 Low testosterone, the patient has been receiving testosterone replacement therapy on outpatient basis Plan The patient will benefit from CPAP therapy. The patient will be asked to come into the sleep center to undergo a CPAP titration study. Encourage weight loss. Maintain regular sleep schedule and good sleep hygiene measures. Will continue to follow make further recommendations based on the results of the sleep study.
== END ==
LOC: 3 N SLEEP 16:48
PROVIDERS: ATTEND Internal Medicine Critical Care Medicine
DX: G47.33 Obstructive sleep apnea (adult) (pediatric) (principal); E66.9 Obesity, unspecified; I48.0 Paroxysmal atrial fibrillation; F10.20 Alcohol dependence, uncomplicated; R06.02 Shortness of breath; J81.1 Chronic pulmonary edema; I50.21 Acute systolic (congestive) heart failure; I42.8 Other cardiomyopathies; G47.10 Hypersomnia, unspecified; Z68.38 Body mass index [BMI] 38.0-38.9, adult; Z79.01 Long term (current) use of anticoagulants

== ENCOUNTER → 2024-10-10 | Outpatient (CLI) | payer BC ==
[2024-10-10 18:52] LABS: Appearance,Urine Turbid (Clear); Bilirubin,Urine Negative (Negative); Blood,Urine Negative (Negative); Color,Urine Yellow (Yellow); Ketones,Urine Negative (Negative); Nitrite,Urine Negative (Negative); PH, Urine 5.5; Specific Gravity,Urine 1.023 (1.001-1.030); Urobilinogen,Urine 0.2 E.U./DL
[2024-10-10 18:59] LABS: Bacteria,Urine None Seen (None Seen)
[2024-10-10 19:16] LABS: HCT 46.2 % (39.6-50.0); HGB 15.8 g/dL (13.0-17.0); MCHC 34.2 g/dL (32.0-37.0); MCV 87.8 FL (80.0-97.0); Mean Platelet Volume 12.5 FL (9.5-12.2); NRBC Per 100 WBC 0 X 10*3/uL (0.00-0.01); Platelet Count 178 X 10*3/uL (140-440); RBC 5.26 X 10*6/uL (4.40-5.60); RDW 15.9 % (11.5-14.5); WBC 4.44 X 10*3/uL (4.50-10.00)
[2024-10-10 19:43] LABS: ALT 44 U/L (10-49); AST 23 U/L (14-35); Albumin 4.7 g/dL (3.8-4.9); Albumin/Globulin Ratio 1.74 Ratio (1.60-3.17); Alkaline Phosphatase 70 U/L (41-126); BUN/Creat Ratio 21.92 Ratio (12.00-20.00); Blood Urea Nitrogen 26.3 mg/dL (9.0-27.0); Calcium 9.1 mg/dL (8.7-10.3); Carbon Dioxide 23.6 mmol/L (21.6-31.8); Chloride 103 mmol/L (96-109); Globulin 2.7 g/dL (1.6-3.3); Glucose 75 mg/dL (70-110); Magnesium 2.3 mg/dL (1.5-2.4); Potassium 3.8 mmol/L (3.5-5.5); Sodium 139 mmol/L (135-145); Total Bilirubin 0.6 mg/dL (0.3-1.2); Total Protein 7.4 g/dL (6.2-8.2); Uric Acid 8.5 mg/dL (3.7-8.7)
[2024-10-10 22:51] LABS: Microalbumin Creatinine Ratio <6 mg/g Cr (0-30)
== END | disposition home or self-care (01) ==
LOC: LABWHC1 14:12
PROVIDERS: ATTEND Nurse Practitioner Family
DX: E55.9 Vitamin D deficiency, unspecified (principal); D64.9 Anemia, unspecified; N39.0 Urinary tract infection, site not specified; R80.9 Proteinuria, unspecified; N25.81 Secondary hyperparathyroidism of renal origin; N17.9 Acute kidney failure, unspecified; M10.9 Gout, unspecified
CPT/HCPCS: 36415; 80053; 81001; 82043; 82306; 82570; 83735; 83970; 84100; 84550; 85027

== ENCOUNTER 2024-10-21 19:44 | Outpatient (CLI) | payer BC ==
--- NOTE | 2024-11-04 23:41 | P.PCN ---
Date of Procedure: 10/21/24 Operative Findings: CPAP titration report History This is a 39-year-old male patient diagnosed having CLARITZA with an AHI of 29.6 and the patient is coming in for a CPAP titration Pertinent physical findings Weight is 251 pounds and the patient's body mass index is 38.2 Technical description The patient was studied using a standard complex polysomnography protocol that included recording of the Lead II EKG, Central, occipital and frontal EEG, right and left outer canthus EOG, submental EMG, right and left anterior tibialis EMG, respiratory airflow by thermocouple and or pressure/flow transducer, respiratory efforts by abdominal and thoracic PVDF belts, oxygen saturation by cable oximetry. Position by observation synchronized the PSG. Equipment used: [employer]. Stepwise CPAP titration was done to eliminate all obstructive respiratory events Sleep architecture The total recording duration was 361.5 minutes. Total sleep time was 316.5 minutes. The overall sleep efficiency was 87.6%. Related to sleep onset was 50 minutes. The latency to REM sleep was 62 minutes. The sleep architecture was categorized by 4.6% stage I, 72.2% stage II, 0% stage III, 24.6% REM sleep. The wake after sleep onset time was 29 minutes and the patient's total arousal index was 6.6 Respiratory analysis CPAP titration was started initially at a CPAP pressure of 7 cm of water and the pressure was gradually increased by increments of 1 cm to reach a maximum CPAP pressure of 15 cm of water. The patient was also placed on BiPAP and utilize pressures were 13/9 and 15/11 cm of water. I carefully reviewed the CPAP titration taking account the patient's sleep stage and body position. Noted the patient was studied in various sleep stages including REM sleep and the patient was studied in supine and nonsupine body position. Based on a careful review of the CPAP titration, the patient will be treated with a BiPAP at a pressure of 13/9 cm at this level of pressure was adequately elevating all obstructive respiratory events without causing any significant desaturations. Oxygenation analysis The baseline pulse ox was 92% while awake. Lowest oxygen saturation encountered during the CPAP titration was 87% and the patient was able to maintain an oxygen level above 90% while being on BiPAP therapy specially targeted BiPAP pressure of 13/9 cm of water Sleep continuity summary The patient had a total of 35 arousals with an index of 6.6. Respiratory arousal index was 1.5 Periodic limb movement activity The patient had a total of 4 periodic limb movement activity with an index of 0.8. No associated arousals Cardiac summary Average heart rate was 60 with a minimum heart rate of 48 and the maximum heart rate of 80. The patient was in the normal sinus rhythm with episodes of sinus tachycardia Assessment Obstructive sleep apnea, moderate to severe with an AHI of 29.6, worse in the supine body position. The patient underwent a successful CPAP/BiPAP titration and the patient will be started on a BiPAP pressure of 13/9 cm of water. After careful review of this titration, BiPAP therapy was more effective than CPAP and eliminating obstructive respiratory events in this patient who suffers from various other comorbidities. Loud snoring along with sleep fragmentation creased fatigue and sleepiness, secondary to obstructive sleep apnea CHF with nonischemic cardiomyopathy with impaired ejection fraction of 20 to 25% Paroxysmal atrial fibrillation current rhythm is sinus Alcoholism/excessive alcohol use Shortness of breath, improved Obesity with a BMI of 38.5 Low testosterone, the patient has been receiving testosterone replacement therapy on outpatient basis Plan Initiate BiPAP therapy at a pressure of 13/9 cm of water. The patient will be offered a AirFit F20 fullface mask large size Encourage weight loss Maintain regular sleep schedule and good sleep hygiene measures Optimize treatment of CHF See me back in the office in 30 to 90 days to assess clinical response and compliancy Will continue to follow
== END 2024-10-22 04:15 | disposition home or self-care (01) ==
LOC: 3 N SLEEP 19:44
PROVIDERS: ATTEND Internal Medicine Critical Care Medicine
DX: G47.33 Obstructive sleep apnea (adult) (pediatric) (principal); I50.21 Acute systolic (congestive) heart failure; I42.8 Other cardiomyopathies; I48.0 Paroxysmal atrial fibrillation; F10.20 Alcohol dependence, uncomplicated; J81.1 Chronic pulmonary edema; E29.1 Testicular hypofunction; E66.9 Obesity, unspecified; Z68.38 Body mass index [BMI] 38.0-38.9, adult; Z79.01 Long term (current) use of anticoagulants
CPT/HCPCS: 95811